=== PATIENT | female | born 1950 | race Caucasian/White ===

== ENCOUNTER → 2017-03-07 | Outpatient (CLI) | payer BC ==
[~2017-03-07] MED LIST: ATEN-171 PO
--- NOTE | 2017-03-07 12:44 | MAMMOGRAPHY REPORT ---
BILATERAL DIGITAL SCREENING MAMMOGRAM WITH CAD: 03/07/2017 CLINICAL HISTORY: Routine screening. TECHNIQUE: Current study was also evaluated with a Computer Aided Detection (CAD) system. Bilateral CC and MLO views were obtained. COMPARISON: Comparison is made to exams dated: 03/05/2016 mammogram, 03/03/2015 mammogram, 12/09/2013 m ammogram, 12/08/2012 mammogram, 07/30/2011 mammogram - [facility], and 05/22/2010 mamm ogram - [facility]. BREAST COMPOSITION: There are scattered areas of fibroglandular density in both breasts. FINDINGS: No suspicious masses, calcifications, or areas of architectural distortion are noted in ei ther breast. There has been no significant interval change compared to prior exams. IMPRESSION: ACR BI-RADS CATEGORY 1: NEGATIVE There is no mammographic evidence of malignancy. A 1 year screening mammogram is recommended. The pa tient will receive written notification of the results. Approximately 10% of breast cancers are not detected with mammography. A negative mammographic report should not delay biopsy if a clinically suggestive mass is present. Jocelynn Guadarrama M.D. /:03/07/2017 12:19:25 Implementation Manager: Gt GOOD(Alise)(M), [facility] letter sent: Normal 1/2 BI-RADS Code: ACR BI-RADS Category 1: Negative
== END | disposition home or self-care (01) ==
LOC: C.MAMM 10:57
PROVIDERS: ATTEND Family Medicine
DX: Z12.31 Encounter for screening mammogram for malignant neoplasm of breast (principal)

== ENCOUNTER 2019-01-15 10:46 | Inpatient (IN) ==
[2019-01-15] MEDS ORDERED: ONDANSETRON INJ 2 MG/ML 2 ML VIAL IV STA (10:58)
[2019-01-15] MEDS ORDERED: SODIUM CHLORIDE 0.9% 1000ML 1,000 ML IV ONE (10:58)
[2019-01-15] MEDS ORDERED: METOCLOPRAMIDE HCL INJ 5 MG/ML 2 ML VIAL IV STA (11:07)
[2019-01-15] MEDS ORDERED: ACETAMINOPHEN 1,000 MG/100 ML VIAL IV STA (11:07)
[2019-01-15 11:20] LABS: Basophils # (auto) 0.02 K/uL (0-0.2); Basophils % (auto) 0.3 %; Eosinophils # (auto) 0.04 K/uL (0-0.5); Eosinophils % (auto) 0.5 %; Hematocrit (blood only) 36.9 % (37-47); Hemoglobin 12.7 g/dL (12.0-16.0); Immature Granulocytes # (auto) 0.01 K/uL (0.00-0.02); Immature Granulocytes % (auto) 0.1 %; Lymphocytes # (auto) 1.72 K/uL (1.2-3.4); Lymphocytes % (auto) 21.7 %; Mean Corpuscular Hgb Conc 34.4 g/dL (32-36); Mean Corpuscular Volume 88.3 fL (80-100); Mean Platelet Volume 9.8 fL (7.4-10.4); Monocytes % (auto) 8.8 %; Neutrophils # (auto) 5.43 K/uL (1.4-6.5); Neutrophils % (auto) 68.6 %; Platelet Count 293 K/uL (130-400); RDW Coefficient of Variation 12.8 % (11.5-14.5); RDW Standard Deviation 41.1 fL (36.4-46.3); Red Blood Count 4.18 M/uL (4.2-5.4); White Blood Count 7.92 K/uL (4.8-10.8)
--- NOTE | 2019-01-15 11:31 | CT Scan Report ---
CT head/brain wo con CT DOSE: 537.48 mGy.cm HISTORY: Headache mental status change TECHNIQUE: Multiaxial CT images of the head were performed without the use of intravenous contrast. A dose lowering technique was utilized adhering to the principles of ALARA. Comparison: 12/25/2009 Findings: The paranasal sinuses and mastoid air cells are clear. The calvarium and skull base are int act. The ventricles and sulci are within normal limits. There is no mass, hematoma, midline shift, or acute infarct. Impression: No acute intracranial abnormality. The above report was generated using voice recognition software. It may contain grammatical, syntax or spelling errors. Electronically signed by: Mario Trimble M.D. 01/15/2019 11:30 AM
[2019-01-15 11:36] LABS: Alanine Aminotransferase 27 U/L (12-78); Albumin Level 3.8 gm/dl (3.4-5.0); Aspartate Aminotransferase 18 U/L (15-37); BUN Creatinine Ratio 11.7 (10-20); Blood Urea Nitrogen 9 mg/dl (7-18); Calcium 9.3 mg/dl (8.5-10.1); Carbon Dioxide 30 mmol/L (21-32); Chloride 89 mmol/L (98-107); Creatinine Clr Calc Pharmacy 76.2 ml/min; Est GFR (African American) 96.7; Est GFR (Non-African American) 83.4; Glucose 124 mg/dl (70-99); Magnesium 1.7 mg/dl (1.8-2.4); Potassium 2.9 mmol/L (3.5-5.1); Sodium 126 mmol/L (136-145)
[2019-01-15 11:41] LABS: Alkaline Phosphatase 58 U/L (45-117); Bilirubin,Total 0.8 mg/dl (0.2-1); Globulin 3.7 gm/dl (2.5-4.0); Total Protein 7.5 gm/dl (6.4-8.2); Troponin I < 0.015 ng/ml (0-0.045)
--- NOTE | 2019-01-15 13:06 | XRay Report ---
XR KUB/Abdomen 1 view CLINICAL HISTORY: Nausea and vomiting COMPARISON STUDY: No previous studies for comparison. FINDINGS: There is no pathologic bowel dilatation. Multiple pelvic basin calcifications likely are pr esent phleboliths. No definite renal calculi are evident. IMPRESSION: Nonobstructive bowel gas pattern. Electronically signed by: Jamison Elkins M.D. 01/15/2019 1:05 PM
[2019-01-15] MEDS ORDERED: PROMETHAZINE 12.5 MG/50.5 ML BAG IV STA (13:16)
[2019-01-15] MEDS ORDERED: MAGNESIUM SULFATE / D5W 1 GM/100 ML BAG IV ONE (13:34)
--- NOTE | 2019-01-15 15:27 | History & Physical Report ---
Date of Service January 15, 2019 Assessment & Plan (1) Hyponatremia: Patient sodium is gone from 1 34-129-1 26, she is a persistent nausea and vomiting for last 2 days without a preceding change in her lifestyle exposures, or medications, with no other ill contacts at home. She appears to be euvolemic to clinical inspection she will be fluid restricted at this time with pending urine random sodium and serum osmolality. Her chlorthalidone will be held (2) Intractable nausea and vomiting: Patient be offered antiemetics and she is currently tolerating ree liz she has no abdominal pain repeat elect lites will be in the morning (3) Electrolyte abnormality: Patient's hypokalemia and hypomagnesemia will be repleted by intravenous means (4) High blood pressure: Patient is atenolol be continued without the chlorthalidone for blood pressure control (5) Anxiety and depression: Patient is maintained on her Prozac (6) Rosacea: Patient typically takes doxycycline 20 mg a day for her rosacea (7) Hyperlipidemia: Patient on atorvastatin for dyslipidemia (8) Intracranial hemorrhage: Patient had intracranial hemorrhage without need for intervention 2008 with complete resolution of symptoms. This is why he avoids nonsteroidals. Initial CT scan showed no concerns for intracranial abnormalities (9) Tick bite: Patient had multiple tick bites that she is avid outdoor in her yard Lyme disease was negative peripheral smear is pending (10) DVT prophylaxis: Because the patient is in a cranial hemorrhage we will just use SCDs at this point time when she is more persistently immobile History of Present Illness Primary Care Provider: Lukas Booth MD 68-year-old female who presents with intractable nausea and vomiting profound hyponatremia hypokalemia and hypomagnesemia. Patient was in the ER on 1 day prior with sodium 129 nausea and vomiting was diagnosed with UTI given Cipro and sent home. The patient was here on 730 for preanesthesia check for knee replacement had a sodium 134. Patient denies any dietary changes new medications ill contacts or exposure to public water. Patient has had previous tick bites in the distant past and a Lyme test on 01/14 was negative. In the ER she is given 2 rounds of antiemetics persistent with nausea. Patient does not have any preceding abdominal pain current abdominal pain increased stressors use of caffeine or alcohol she does not use nonsteroidals she is not had a cholecystectomy but LFTs and lipase are normal said no diarrhea with this. She is also had normal urinations recently without any dark urine or urinary changes. The urine infection was suspected due to a routine urinalysis that was done on ER presentation. Allergies Allergy/AdvReac Type Severity Reaction Status Date / Time Penicillins Allergy Mild RASH Verified 01/15/19 11:37 aspirin AdvReac Unknown CAN'T Verified 01/15/19 11:37 HAVE, HX HEMORRHAGIC STROKE NSAIDS (Non-Steroidal AdvReac Unknown CAN'T Verified 01/15/19 11:37 Anti-Inflamma HAVE, HX HEMORRHAGIC STROKE Home Medications Home Medications Medication Instructions Recorded Confirmed Type atenolol-chlorthalidone 1 tab PO HS 01/05/19 01/15/19 History atorvastatin 40 mg PO HS 01/05/19 01/15/19 History diphenhydramine HCl [Benadryl] 25 mg PO HS 01/05/19 01/15/19 History doxycycline hyclate 20 mg PO HS 01/05/19 01/15/19 History fluoxetine [Prozac] 20 mg PO Q2D 01/05/19 01/15/19 History ciprofloxacin HCl [Cipro] 500 mg PO Q12H #10 tab 01/14/19 01/15/19 Rx fluocinonide 1 applic TOPICAL DIRECTED PRN 01/14/19 01/15/19 History metronidazole 1 applic TOPICAL BID PRN 01/14/19 01/15/19 History calcium carbonate-vitamin D3 500 tab PO QAM 01/15/19 01/15/19 History [Calcium 500 + D (D3)] cinnamon bark [Cinnamon] 500 mg PO QAM 01/15/19 01/15/19 History coenzyme Q10 [CoQ-10] 30 mg PO QAM 01/15/19 01/15/19 History cranberry 400 mg PO QAM 01/15/19 01/15/19 History flaxseed oil 1,000 mg PO QAM 01/15/19 01/15/19 History lactobacillus combination no.4 0 cell PO QAM 01/15/19 01/15/19 History [Probiotic] multivitamin 100 tab PO QAM 01/15/19 01/15/19 History vitamin B complex 0 tab PO QAM 01/15/19 01/15/19 History Past Med/Surg History Medical History Anxiety and depression High blood pressure History of stroke HEMORRHAGIC , 2010 - [place] AT [place], NO RESIDUAL EFFECTS "SEALED ITSELF" Hyperlipidemia Osteoarthritis Rosacea Surgical History History of colonoscopy History of gynecologic surgery OVARIAN CYST REMOVED AND 1 ONE OVARY , patient believes appendix may have been removed at that time, 1977 History of hysterectomy 1 OVARY REMAINS History of right knee surgery ACL REMOVED Social History Preferred Language: Macedonian Communication Ability: Effective Field Property Loss Specialist Required: No Beliefs That Will Affect Care: None Current Living Situation: Spouse Feels Safe at Home: Yes Smoking Status: Never smoker Hx Alcohol Use: Yes Alcohol type: wine Hx Substance Use: No Review of Systems Review of Systems: ROS: well nourished well developed. Patient was in mild distress of any No double vision blurry vision No problems with speech or swallowing No palpitations, chest pain or pressure No Wheezing or breathing issues No abdominal pain but she is had persistent nausea she has had some vomiting in the ER, she said no diarrhea No burning urine urine frequency or changes in color No focal joint pain or muscle pain No skin rashes or oral lesions No unusual bruising or bleeding No focused back pain or numbness or loss of strength No changes in memory or confusion Physical Exam Physical Exam: The patient appeared well nourished and normally developed. Vital signs as documented. Head exam is unremarkable. normocephalic, atraumatic Neck is without jugular venous distension, thyromegaly, or lymphademopathy Lungs are clear to auscultation and percussion. Cardiac exam reveals Rhythm is regular. First and second heart sounds normal. Abdominal exam reveals normal bowel sounds, no masses, no organomegaly Extremities are nonedematous and both pedal pulses are present Neurologic exam is A&Ox3, no focal deficits, strength is equal bilateral Psychologically seems neither anxious or depressed Skin is warm Dry without bruises or lesions Results & Data Vital Signs (Past 12 Hours) Vital Signs Temp Pulse Pulse Resp BP BP Pulse Ox 01/15/19 11:54 62 18 138/69 97 01/15/19 10:54 36.6 C 65 18 125/[address] head was negative KUB was also negative for bowel obstruction EKG shows sinus bradycardia with some persistent lateral ST and T wave changes which are similar to 2011 PG Care Time/CCT Total # of Minutes Spent Total Time Spent with Patient: Total time spent is greater than 50% in coordination of care (as documented) at patient's floor/unit and/or counseling patient:
[2019-01-15] MEDS ORDERED: PROMETHAZINE HCL 12.5 MG in SODIUM CHLORIDE 0.9% 50 ML IV PRN ×2 (15:32→16:43)
[2019-01-15] MEDS ORDERED: POTASSIUM CHLORIDE 10 MEQ / 100ML WTR IV STA (16:43)
[2019-01-15] MEDS ORDERED: ONDANSETRON INJ 2 MG/ML 2 ML VIAL IV PRN (16:43)
[2019-01-15] MEDS ORDERED: LORazepam 0.5 MG/1 ML VIAL IV PRN (16:43)
[2019-01-15] MEDS ORDERED: POTASSIUM CHLORIDE / WTR 10 MEQ/100 ML PLCT IV SCH (17:00)
--- NOTE | 2019-01-15 17:44 | Emergency Department Note ---
Entered by Alex Gacres acting as a scribe for Rolando Ng MD History of Present Illness General Chief complaint: Nausea Stated complaint: NAUSEA, CAN'T KEEP LIQ DOWN,HEADACHE Time Seen by Provider: 01/15/19 10:57 Source: patient History of Present Illness Provider complaint: Nausea Onset (ago): day(s) 1 Location: abdomen Pain Consistency: + constant Maximum Pain Intensity: 6 Current Pain Intensity: 6 Relieved By: + none Exacerbated By: + eating and + other (Drinking) Associated symptoms: + headaches and + nausea/vomiting The patient is a 68 year old female w/ PMHx HTN, HLD, CVA, UTI, hyster ectomy and knee surgery who presents to the ED w/ CC of constant nausea beginning yesterday. The patient states she was here yesterday and was diagnosed with sinusitis and a possible UTI. The patient was given Rocephin and Cipro at discharge. She notes that last night she started vomiting and this has been constant since. The patient reports that eating and drinking makes her symptoms worse and nothing makes better. The patient notes that she has some abdominal pain from vomiting, which she rates a 6/10. The patient also mentioned that she has a slight headache. The patient states she took a Tylenol at 03:00 this morning which helped relieve her symptoms a little. She notes her last bowel mo vement was this morning and it was normal. The patient denies any recent travel, being around anyone sick, recent surgeries, or baseline deficits from her stroke as well as being on any blood thinners. Home Medications Home Medications Medication Instructions Recorded Confirmed Type atenolol-chlorthalidone 1 tab PO HS 01/05/19 01/15/19 History atorvastatin 40 mg PO HS 01/05/19 01/15/19 History diphenhydramine HCl [Benadryl] 25 mg PO HS 01/05/19 01/15/19 History doxycycline hyclate 20 mg PO HS 01/05/19 01/15/19 History fluoxetine [Prozac] 20 mg PO Q2D 01/05/19 01/15/19 History ciprofloxacin HCl [Cipro] 500 mg PO Q12H #10 tab 01/14/19 01/15/19 Rx fluocinonide 1 applic TOPICAL DIRECTED PRN 01/14/19 01/15/19 History metronidazole 1 applic TOPICAL BID PRN 01/14/19 01/15/19 History calcium carbonate-vitamin D3 500 tab PO QAM 01/15/19 01/15/19 History [Calcium 500 + D (D3)] cinnamon bark [Cinnamon] 500 mg PO QAM 01/15/19 01/15/19 History coenzyme Q10 [CoQ-10] 30 mg PO QAM 01/15/19 01/15/19 History cranberry 400 mg PO QAM 01/15/19 01/15/19 History flaxseed oil 1,000 mg PO QAM 01/15/19 01/15/19 History lactobacillus combination no.4 0 cell PO QAM 01/15/19 01/15/19 History [Probiotic] multivitamin 100 tab PO QAM 01/15/19 01/15/19 History vitamin B complex 0 tab PO QAM 01/15/19 01/15/19 History Allergies Allergy/AdvReac Type Severity Reaction Status Date / Time Penicillins Allergy Mild RASH Verified 01/15/19 11:37 aspirin AdvReac Unknown CAN'T Verified 01/15/19 11:37 HAVE, HX HEMORRHAGIC STROKE NSAIDS (Non-Steroidal AdvReac Unknown CAN'T Verified 01/15/19 11:37 Anti-Inflamma HAVE, HX HEMORRHAGIC STROKE Past Med/Surg History Medical History Anxiety and depression High blood pressure History of stroke HEMORRHAGIC , 2010 - [place] AT [place], NO RESIDUAL EFFECTS "SEALED ITSELF" Hyperlipidemia Osteoarthritis Rosacea Surgical History History of colonoscopy History of gynecologic surgery OVARIAN CYST REMOVED AND 1 ONE OVARY , patient believes appendix may have been removed at that time, 1977 History of hysterectomy 1 OVARY REMAINS History of right knee surgery ACL REMOVED Family History Other Family history of prostate cancer in father Social History Preferred Language: Danish Communication Ability: Effective 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 and A total of 10 systems reviewed and were otherwise negative Physical Exam Vital Signs Vital Signs - 24 hr 01/15/19 10:54 01/15/19 11:54 01/15/19 13:40 Temperature 36.6 C Temperature Source Oral Sepsis Recent Fever Within 48 Hours No Sepsis New/Unexplained Change in Mental Status No Sepsis Action Taken by Nursing No Action Required Pulse Rate 65 Pulse Rate [Left Finger] 62 56 L Pulse Rhythm [Left Finger] Regular Regular Pulse Strength [Left Finger] Normal Normal Respiratory Rate 18 18 18 Respiratory Effort / Characteristics Non-Labored Spontaneous Non-Labored Spontaneous Respiratory Depth Normal Normal Normal Respiratory Pattern Regular Regular Blood Pressure 125/76 Blood Pressure [Left Arm] 138/69 135/73 Blood Pressure Mean 92 Blood Pressure Mean [Left Arm] 92 93 Blood Pressure Position [Left Arm] Lying Lying Pulse Oximetry 97 97 96 Oxygen Delivery Method Room Air Room Air Room Air GENERAL: Mildly uncomfortable in appearance, well nourished, NAD, non-toxic. EYE EXAM: Normal conjunctiva. PERRL, no anisocoria and EOM's grossly intact w/o pain. OROPHARYNX: Dry mucus membranes. Grossly normal dentition. NECK: Supple, no nuchal rigidity, no adenopathy, non-tender. No signs of meningismus. LUNGS: Clear to auscultation. Normal chest wall mechanics. HEART: NSR, no MRG. ABDOMEN: Abdomen soft, non-tender, normo-active bowel sounds, no masses, no rebound or guarding. BACK: No CVA TTP. SKIN: No rashes and no bruising. UPPER EXTREMITIES: Upper extremities are grossly normal. LOWER EXTREMITIES: No pitting edema. No calf pain. NEURO EXAM: A&O x3, cranial nerves II-XII grossly intact, normal speech, moves all 4 extremities on command w/o issue. Course 1102: Past medical records reviewed. The patient was evaluated in room C06, and a complete history and physical examination were performed. 1238: I reevaluated the patient and her vomiting is better. She is trying to keep down ree liz. 1315: The patient is now vomiting. 1423: I spoke to Dr. Mendez [facility] Hospitalist about the patient's case and he is going to accept the patient for further evaluation. Consultations Consultation #1: I spoke to Dr. Mendez [facility] Hospitalist about the patient's case and he is going to accept the patient for further evaluation. Time: 14:23 Administered Medications Potassium Chloride (K Kevin / Wtr) 10 meq in 100 mls @ 100 mls/hr IV Q1H EWA Stop: 01/15/19 19:59 Last Admin: 01/15/19 17:29 Dose: 100 mls/hr Documented by: [id number] Discontinued Medications Sodium Chloride (Nss 1000ml) 1,000 mls @ 999 mls/hr IV .Q1H1M ONE Stop: 01/15/19 11:58 Last Infusion: 01/15/19 12:20 Dose: 0 mls/hr Documented by: [id number] Admin: 01/15/19 11:18 Dose: 999 mls/hr Documented by: [id number] Acetaminophen (Ofirmev) 1,000 mg in 100 mls @ 400 mls/hr IV NOW STA Stop: 01/15/19 11:21 Last Infusion: 01/15/19 12:06 Dose: 0 mls/hr Documented by: [id number] Admin: 01/15/19 11:51 Dose: 400 mls/hr Documented by: [id number] Promethazine HCl (Phenergan) 12.5 mg in 50.5 mls @ 202 mls/hr IV NOW STA Stop: 01/15/19 13:30 Last Infusion: 01/15/19 13:44 Dose: 0 mls/hr Documented by: [id number] Admin: 01/15/19 13:29 Dose: 202 mls/hr Documented by: [id number] Magnesium Sulfate/Dextrose (Magnesium Sulfate / D5w) 1 gm in 100 mls @ 100 mls/hr IV ONE ONE Stop: 01/15/19 14:33 Last Infusion: 01/15/19 15:00 Dose: 0 mls/hr Documented by: [id number] Admin: 01/15/19 13:54 Dose: 100 mls/hr Documented by: [id number] Metoclopramide HCl (Reglan) 10 mg IV NOW STA Stop: 01/15/19 11:08 Last Admin: 01/15/19 11:18 Dose: 10 mg Documented by: [id number] Ondansetron HCl (Zofran) 4 mg IV NOW STA Stop: 01/15/19 10:59 Last Admin: 01/15/19 11:22 Dose: Not Given Documented by: [id number] Medical Decision Making Medical Records Attestation: I reviewed the patient's medical records. Home Medications Current Medication List: was personally reviewed by me Laboratory Data Attestation: I reviewed the patient's lab results. Result diagrams: 01/15/19 11:11 01/15/19 11:11 Lab Results 01/15/19 01/15/19 01/15/19 Range/Units 11:11 11:11 11:11 WBC 7.92 (4.8-10.8) K/uL RBC 4.18 L (4.2-5.4) M/uL Hgb 12.7 (12.0-16.0) g/dL Hct 36.9 L (37-47) % MCV 88.3 (80-100) fL MCH 30.4 (25-34) pg MCHC 34.4 (32-36) g/dL RDW Std Deviation 41.1 (36.4-46.3) fL RDW Coeff of Janna 12.8 (11.5-14.5) % Plt Count 293 (130-400) K/uL MPV 9.8 (7.4-10.4) fL Immature Gran % (Auto) 0.1 % Neut % (Auto) 68.6 % Lymph % (Auto) 21.7 % Falls % (Auto) 8.8 % Eos % (Auto) 0.5 % Baso % (Auto) 0.3 % Immature Gran # (Auto) 0.01 (0.00-0.02) K/uL Neut # (Auto) 5.43 (1.4-6.5) K/uL Lymph # (Auto) 1.72 (1.2-3.4) K/uL Falls # (Auto) 0.70 H (0.11-0.59) K/uL Eos # (Auto) 0.04 (0-0.5) K/uL Baso # (Auto) 0.02 (0-0.2) K/uL Absolute Nucleated RBC 0.00 (0-0) K/uL Nucleated RBC % (auto) 0.0 % PT Cancelled INR Cancelled Sodium 126 L (136-145) mmol/L Potassium 2.9 L (3.5-5.1) mmol/L Chloride 89 L (98-107) mmol/L Carbon Dioxide 30 (21-32) mmol/L Anion Gap 7.0 (3-11) BUN 9 (7-18) mg/dl Creatinine 0.73 (0.6-1.2) mg/dl Est Cr Clr Drug Dosing 76.2 ml/min Est GFR ( Amer) 96.7 Est GFR (Non-Af Amer) 83.4 BUN/Creatinine Ratio 11.7 (10-20) Glucose 124 H (70-99) mg/dl Osmolality (280-300) mOsm/kg Calcium 9.3 (8.5-10.1) mg/dl Magnesium 1.7 L (1.8-2.4) mg/dl Total Bilirubin 0.8 (0.2-1) mg/dl AST 18 (15-37) U/L ALT 27 (12-78) U/L Alkaline Phosphatase 58 (45-117) U/L Troponin I < 0.015 (0-0.045) ng/ml Total Protein 7.5 (6.4-8.2) gm/dl Albumin 3.8 (3.4-5.0) gm/dl Globulin 3.7 (2.5-4.0) gm/dl Albumin/Globulin Ratio 1.0 (0.9-2) Lipase 125 (73-393) U/L 01/15/19 Range/Units 11:11 WBC (4.8-10.8) K/uL RBC (4.2-5.4) M/uL Hgb (12.0-16.0) g/dL Hct (37-47) % MCV (80-100) fL MCH (25-34) pg MCHC (32-36) g/dL RDW Std Deviation (36.4-46.3) fL RDW Coeff of Janna (11.5-14.5) % Plt Count (130-400) K/uL MPV (7.4-10.4) fL Immature Gran % (Auto) % Neut % (Auto) % Lymph % (Auto) % Falls % (Auto) % Eos % (Auto) % Baso % (Auto) % Immature Gran # (Auto) (0.00-0.02) K/uL Neut # (Auto) (1.4-6.5) K/uL Lymph # (Auto) (1.2-3.4) K/uL Falls # (Auto) (0.11-0.59) K/uL Eos # (Auto) (0-0.5) K/uL Baso # (Auto) (0-0.2) K/uL Absolute Nucleated RBC (0-0) K/uL Nucleated RBC % (auto) % PT INR Sodium (136-145) mmol/L Potassium (3.5-5.1) mmol/L Chloride (98-107) mmol/L Carbon Dioxide (21-32) mmol/L Anion Gap (3-11) BUN (7-18) mg/dl Creatinine (0.6-1.2) mg/dl Est Cr Clr Drug Dosing ml/min Est GFR ( Amer) Est GFR (Non-Af Amer) BUN/Creatinine Ratio (10-20) Glucose (70-99) mg/dl Osmolality 267 L (280-300) mOsm/kg Calcium (8.5-10.1) mg/dl Magnesium (1.8-2.4) mg/dl Total Bilirubin (0.2-1) mg/dl AST (15-37) U/L ALT (12-78) U/L Alkaline Phosphatase (45-117) U/L Troponin I (0-0.045) ng/ml Total Protein (6.4-8.2) gm/dl Albumin (3.4-5.0) gm/dl Globulin (2.5-4.0) gm/dl Albumin/Globulin Ratio (0.9-2) Lipase (73-393) U/L Imaging Data Radiologist's Impression: Radiology results as stated below per my review and the radiologist's interpretation: XR KUB/Abdomen 1 view CLINICAL HISTORY: Nausea and vomiting COMPARISON STUDY: No previous studies for comparison. FINDINGS: There is no pathologic bowel dilatation. Multiple pelvic basin c alcifications likely are present phleboliths. No definite renal calculi are evident. IMPRESSION: Nonobstructive bowel gas pattern. Electronically signed by: Jamison Elkins M.D. 01/15/2019 1:[address] head/brain wo con CT DOSE: 537.48 mGy.cm HISTORY: Headache mental status change TECHNIQUE: Multiaxial CT images of the head were performed without the use of intravenous contrast. A dose lowering technique was utilized adhering to the principles of ALARA. Comparison: 12/25/2009 Findings: The paranasal sinuses and mastoid air cells are clear. The calvarium and skull base are intact. The ventricles and sulci are within normal limits. There is no mass, hematoma, midline shift, or acute infarct. Impression: No acute intracranial abnormality. The above report was generated using voice recognition software. It may contain grammatical, syntax or spelling errors. Electronically signed by: Mario Trimble M.D. 01/15/2019 11:30 AM ECG Data Attestation: I personally reviewed and interpreted this ECG as follows: Indication: vomiting Rate (beats per minute): 60 Rhythm: normal sinus Findings: + other (Normal intervals and axis) and + T-wave inversion (V2 and V3) Comparison ECG Date: from (01/12/19) Change: the following changes noted (TWI is new. ) Blood Pressure Blood Pressure Findings: Normal blood pressure Blood Pressure Disposition: further management by hospitalist MDM Narrative The patient is a 68 year old female w/ PMHx HTN, HLD, CVA, UTI, hysterectomy and knee surgery who presents to the ED w/ CC of constant nausea beginning yesterday. Differential diagnoses includes but is not limited to gastritis, peptic ulcer disease, GERD, gallbladder disease, pancreatitis, small bowel obstruction, acute coronary syndrome, pericarditis, ischemic bowel, irritable bowel disease, irritable bowel syndrome, appendicitis, diverticulitis, malignancy, hernia, urinary tract infection, torsion, perforation, trauma, infectious. Patient was seen and evaluated the bedside. The patient was presenting with some worsening nausea and associated vomiting. The patient states she has not been able to tolerate by mouth. The patient was seen yesterday did have some mild hyponatremia and was diagnosed with a possible UTI started on ciprofloxacin. The patient's blood work does show worsening hyponatremia and associated hypomagnesemia. The patient did receive IV fluids. The patient was given 2 rounds of antiemetics but was still feeling nauseated and had vomited. Given the persistence and associated hyponatremia did speak the on-call hospitalist. A urine sodium and serum awesome's were added. Patient was admitted to the medicine service. Patient did have a soft abdomen and really only complained of nausea. No CT of the and pelvis was ordered at this time given her reassuring blood work. EKG did possibly show some new T wave inversions but the troponin was negative. Patient did have a CT of the brain which is negative given her prior history of intracranial hemorrhage. Patient does self describe having an angiogram completed which is not show any evident evidence of aneurysm and apparently did not require any sort of coiling or embolization procedure within the brain, per the patient. Impression & Plan Hyponatremia, Nausea & vomiting, Hypomagnesemia Discharge Plan Visit Data *Final* Discharge Date/Time: 01/15/19 16:16 Chief Complaint: Nausea Stated Complaint: NAUSEA, CAN'T KEEP LIQ DOWN,HEADACHE ED Provider: Rolando Ng Discharge Problem: Hyponatremia, Nausea & vomiting, Hypomagnesemia Patient Disposition: Admitted As Inpatient Discharge Instructions Interventions: ED Discharge Assessment Last Done: 01/15/19 16:16 Discharge Problem: Nausea & vomiting Qualifiers: Vomiting type: unspecified Vomiting Intractability: unspecified Qualified Code(s): R11.2 - Nausea with vomiting, unspecified The scribe's documentation has been prepared under my direction and personally reviewed by me in its entirety. I confirm that the note above accurately reflects all work, treatment, procedures, and medical decision making performed by me.
[2019-01-15] MEDS ORDERED: POTASSIUM CHLORIDE 20 MEQ TABCR PO STA (17:47)
[2019-01-15] MEDS ORDERED: Nursing to Pharmacy Communication ONE (17:50)
[2019-01-15 19:01] LABS: INR 1.2 (0.9-1.1); Prothrombin Time 12.2 Seconds (9.0-12.0)
[2019-01-15] MEDS: ATORVASTATIN 40 MG TAB PO SCH (21:13)
[2019-01-16] MEDS: ACETAMINOPHEN 325 MG TAB PO PRN ×2 (03:33→18:29)
[2019-01-16 07:14] LABS: BUN Creatinine Ratio 9.8 (10-20); Calcium 8.9 mg/dl (8.5-10.1); Creatinine Clr Calc Pharmacy 88.8 ml/min; Est GFR (African American) 105.9; Est GFR (Non-African American) 91.4; Potassium 2.9 mmol/L (3.5-5.1)
[2019-01-16] MEDS ORDERED: FLUOXETINE HCL 20 MG CAP PO SCH (09:00)
[2019-01-16] MEDS: POTASSIUM CHLORIDE 20 MEQ TABCR PO SCH ×3 (09:20→20:58)
[2019-01-16] MEDS: POTASSIUM CHLORIDE / WTR 10 MEQ/100 ML PLCT IV SCH ×2 (09:23→12:30)
[2019-01-16] MEDS: ATENOLOL 50 MG TABLET PO SCH (09:37)
[2019-01-16 17:01] LABS: BUN Creatinine Ratio 10.4 (10-20); Calcium 9.3 mg/dl (8.5-10.1); Creatinine Clr Calc Pharmacy 84.7 ml/min; Est GFR (African American) 104.3; Potassium 3.7 mmol/L (3.5-5.1)
--- NOTE | 2019-01-16 17:27 | Hospitalist Progress Note ---
Date of Service January 16, 2019 Assessment & Plan (1) Nausea & vomiting: resolved. suspect she had viral gastroenteritis. doubt this was due to tick-borne disease as she is improving without tick- directed antibiotics. advance diet to full liquids. replace low K and low mag. no pain on exam to suggest biliary tract disease. Present on Admission?: Yes (2) Hyponatremia: Improving. Was likely due to vomiting as well as thiazide diuretic use. Repeat BMP am. Present on Admission?: Yes (3) Hypomagnesemia: resolved Present on Admission?: Yes (4) Hypokalemia: resolving replace IV/PO today repeat BMP again in am would not resume thiazide diuretic at discharge Present on Admission?: Yes (5) Tick bite: in the recent past. lyme's negative. send anaplasmosis DNA. doubt GI symptoms are tick-borne related. Present on Admission?: No (6) HTN (hypertension): cont atenolol hold thiazide Present on Admission?: Yes (7) Hyperlipidemia: cont statin (8) DVT prophylaxis: ambulation SCDs hopefully can d/c home tomorrow Subjective patient feeling better. no nausea/emesis/diarrhea. no abdominal pain. tolerating clears. has appetite. had chills a few days ago - now resolved. no fever. worried about recent tick bites. Review of Systems Constitutional: no fever, no chills, no body aches and no fatigue Respiratory: no cough and no dyspnea Cardiovascular: no chest pain Gastrointestinal: no abdominal pain, no bloating, no nausea, no vomiting, no constipation, no diarrhea/loose stools and no blood in stools Physical Exam Constitutional: well developed and well nourished; no acute distress ENMT: external ear and nose normal, oropharynx normal Respiratory: normal respiratory effort, lungs clear to auscultation Cardiovascular: Rate/Rhythm: regular rate and regular rhythm Heart Sounds: normal S1 and normal S2; no murmur Vessels: posterior tibial pulses present and dorsalis pedis pulses present; no JVD Extremities: no edema Gastrointestinal (Abdomen): normal bowel sounds, soft, nontender, no hepatosplenomegaly Psychiatric: A+Ox3, euthymic affect Results & Data Vital Signs (Past 12 Hours) Vital Signs Temp Pulse Pulse Resp BP Pulse Ox 01/16/19 15:51 36.6 C 78 20 143/81 H 97 01/16/19 11:09 36.6 C 62 18 151/86 H 97 01/16/19 11:05 61 01/16/19 07:15 36.8 C 59 L 18 123/68 96 Laboratory Results Laboratory Results - last 24 hr 01/15/19 01/15/19 01/15/19 11:11 11:11 18:43 Absolute Nucleated RBC 0.00 Nucleated RBC % (auto) 0.0 PT 12.2 H INR 1.2 H Sodium Potassium Chloride Carbon Dioxide Anion Gap BUN Creatinine Est Cr Clr Drug Dosing Est GFR ( Amer) Est GFR (Non-Af Amer) BUN/Creatinine Ratio Glucose Calcium Magnesium TSH 2.270 Urine Osmolality Ur Random Sodium A. phagocytophilum DNA Hepatitis C Ab Screen 01/16/19 01/16/19 01/16/19 03:30 06:29 06:29 Absolute Nucleated RBC Nucleated RBC % (auto) PT INR Sodium 131 L Potassium 2.9 L Chloride 94 L Carbon Dioxide 30 Anion Gap 7.0 BUN 6 L Creatinine 0.62 Est Cr Clr Drug Dosing 88.8 Est GFR ( Amer) 105.9 Est GFR (Non-Af Amer) 91.4 BUN/Creatinine Ratio 9.8 L Glucose 95 Calcium 8.9 Magnesium TSH Urine Osmolality Ur Random Sodium 80 A. phagocytophilum DNA Hepatitis C Ab Screen Neg 01/16/19 01/16/19 01/16/19 06:29 11:25 11:25 Absolute Nucleated RBC Nucleated RBC % (auto) PT INR Sodium Potassium Chloride Carbon Dioxide Anion Gap BUN Creatinine Est Cr Clr Drug Dosing Est GFR ( Amer) Est GFR (Non-Af Amer) BUN/Creatinine Ratio Glucose Calcium Magnesium 2.1 TSH Urine Osmolality 381 L Ur Random Sodium 86 A. phagocytophilum DNA Hepatitis C Ab Screen 01/16/19 01/16/19 16:20 16:20 Absolute Nucleated RBC Nucleated RBC % (auto) PT INR Sodium 133 L Potassium 3.7 D Chloride 97 L Carbon Dioxide 29 Anion Gap 7.0 BUN 7 Creatinine 0.65 Est Cr Clr Drug Dosing 84.7 Est GFR ( Amer) 104.3 Est GFR (Non-Af Amer) 90.0 BUN/Creatinine Ratio 10.4 Glucose 88 Calcium 9.3 Magnesium TSH Urine Osmolality Ur Random Sodium A. phagocytophilum DNA Pending Hepatitis C Ab Screen PG Care Time/CCT Total # of Minutes Spent Total Time Spent with Patient: Total time spent is greater than 50% in coordination of care (as documented) at patient's floor/unit and/or counseling patient: (1) Nausea & vomiting Vomiting Intractability: unspecified Vomiting type: unspecified Qualified Code(s): R11.2 - Nausea with vomiting, unspecified (2) Tick bite Encounter type: subsequent encounter Qualified Code(s): W57.XXXD - Bitten or stung by nonvenomous insect and other nonvenomous arthropods, subsequent encounter (3) HTN (hypertension) Hypertension type: essential hypertension Qualified Code(s): I10 - Essential (primary) hypertension (4) Hyperlipidemia Hyperlipidemia type: mixed hyperlipidemia Qualified Code(s): E78.2 - Mixed hyperlipidemia
[2019-01-16] MEDS: ATORVASTATIN 40 MG TAB PO SCH (20:59)
[2019-01-17 07:25] LABS: Hematocrit (blood only) 39.8 % (37-47); Hemoglobin 13.6 g/dL (12.0-16.0); Mean Corpuscular Hgb Conc 34.2 g/dL (32-36); Mean Corpuscular Volume 89.2 fL (80-100); Mean Platelet Volume 9.9 fL (7.4-10.4); Platelet Count 306 K/uL (130-400); RDW Coefficient of Variation 12.9 % (11.5-14.5); RDW Standard Deviation 41.9 fL (36.4-46.3); Red Blood Count 4.46 M/uL (4.2-5.4); White Blood Count 9.53 K/uL (4.8-10.8)
[2019-01-17 08:02] LABS: BUN Creatinine Ratio 13.5 (10-20); Calcium 9.3 mg/dl (8.5-10.1); Creatinine Clr Calc Pharmacy 91.6 ml/min; Est GFR (Non-African American) 92.4; Potassium 4.2 mmol/L (3.5-5.1)
[2019-01-17] MEDS: ATENOLOL 50 MG TABLET PO SCH (08:11)
[2019-01-17] MEDS ORDERED: SODIUM CHLORIDE 1 GM TABLET PO SCH (09:00)
[2019-01-17 12:26] LABS: Uric Acid 2.4 mg/dl (2.6-7.2)
--- NOTE | 2019-01-21 06:26 | Discharge Summary ---
Date of Service date of admission - January 15, 2019 date of discharge - January 17, 2019 Admission HPI Per Admitting Provider 68-year-old female who presented with intractable nausea and vomiting along with hyponatremia, hypokalemia, and hypomagnesemia. Patient was in the ER 1 day prior with sodium 129 along with nausea and vomiting. She was diagnosed with UTI, given Cipro, and sent home. Patient denied any dietary changes, new medications, ill contacts, or exposure to public water. Patient reported previous tick bites in the distant past and a Lyme test on 01/14 was negative. In the ER she was given 2 rounds of antiemetics but persisted with nausea. Patient denied abdominal pain. Principal Diagnosis probable viral gastroenteritis Discharge Exam Constitutional well developed and well nourished; no acute distress ENMT external ear and nose normal, oropharynx normal Respiratory normal respiratory effort, lungs clear to auscultation Cardiovascular Rate/Rhythm: regular rate and regular rhythm Heart Sounds: normal S1 and normal S2; no murmur Vessels: posterior tibial pulses present and dorsalis pedis pulses present; no JVD Extremities: no edema Gastrointestinal (Abdomen) normal bowel sounds, soft, nontender, no hepatosplenomegaly Psychiatric A+Ox3, euthymic affect Discharge Data Allergies Allergy/AdvReac Type Severity Reaction Status Date / Time Penicillins Allergy Mild RASH Verified 01/15/19 11:37 aspirin AdvReac Unknown CAN'T Verified 01/15/19 11:37 HAVE, HX HEMORRHAGIC STROKE NSAIDS (Non-Steroidal AdvReac Unknown CAN'T Verified 01/15/19 11:37 Anti-Inflamma HAVE, HX HEMORRHAGIC STROKE Ordered Studies CT head - negative for acute pathology. Hospital Course (1) Nausea & vomiting: Resolved. Suspect she had viral gastroenteritis. Doubt this was due to tick-borne disease as she was improving without tick illness directed antibiotics. Low K and Low mag were repleted. C diff testing was negative. Diet was resumed and advanced to low fiber without difficulty. She had no pain on exam to suggest biliary tract disease. (2) Hyponatremia: Acute/chronic. Records were reviewed from [facility] - she has had Na levels of 134-135 for several years. Suspect her acute hyponatremia was due to vomiting as well as thiazide diuretic use. Lowest Na level was 126; discharge Na was 130. 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 At discharge the following were recommended - 1. salt tablet NaCL 1gm daily 2. fluid restrict to 1800cc/day 3. stop chlorthalidone 4. continue SSRI for now but she is going to discuss with PCP weaning off such in the future 5. repeat BMP in 3-4 days post-discharge for stability (3) Hypomagnesemia: resolved with IV repletion (4) Hypokalemia: resolved with IV/PO repletion would not resume thiazide diuretic at discharge (5) Tick bite: in the recent past. lyme's was negative. sent anaplasmosis DNA which ultimately returned negative. doubt GI symptoms were tick disease related. (6) HTN (hypertension): continue atenolol thiazide has been stopped BPs were well-controlled while here (7) Hyperlipidemia: cont statin Total Time Total Time Spent Total Time Spent (In Minutes): 35 Total Time Includes: Examination of the Patient, Discharge Planning and Medication Reconciliation Discharge Plan Discharge Items Patient Disposition: Home - Self-Care Reason For Visit: HYPONATREMIA (low sodium) Discharge Diagnosis: 1. gastroenteritis ("stomach bug") - resolving; likely due to virus. 2. hyponatremia - likely due to combination of diuretic/water pill use, vomiting, and suspected "SIADH" from your prozac. 3. low potassium and low magnesium - resolved. 4. history of tick bite(s) - Lyme's testing negative; anaplasmosis testing pending. Discharge Goals: Diagnostic testing and Therapeutic intervention Activity: As commented below Activity Comment: for the next 1-2 days please take it easy then gradually increase activity Exercise/Sports: Gradually increase as tolerated Driving/Machine Use: Resume 1 day after discharge Non-emergency contact: Primary Care Provider Call non-emergency contact if: you have any medication questions, your symptoms worsen and your temperature is above 100.5 Follow-up/Referrals: Lukas Booth MD [Primary Care Provider] - (see Dr Booth later this week; you will need a repeat "BMP" (basic metabolic panel which checks your sodium level)) Diet: Low Fiber Fluids: 1800ml (7 cups) Addtl Provider Instructions: You were admitted with nausea and vomiting likely due to viral gastroenteritis. Your symptoms gradually improved and you were able to eat/drink. The diarrhea should gradually resolve itself in the next 2-3 days. In the midst of the stomach illness you had low potassium, low magnesium, and low sodium. Each of these improved and/or completely normalized. The low potassium and magnesium was due to vomiting as well as your diuretic you had been taking. The low sodium was likely due to multiple causes as noted above. It appears that you may have had something called "SIADH" from your prozac for some time. This is when the prozac inappropriately tells a hormone in your body to work "over-time" thereby leading to the low sodium. The treatment of this condition is to either stop the prozac; OR - you can continue on the prozac but you need to take a salt tablet daily. Your sodium level at admission was 126. It is now 130. Records from [facility] show it has chronically been mildly low at 134-135 for several years. Recommendations - 1. STOP your atenolol-chlorthalidone. 2. START atenolol 50mg once daily. 3. START sodium chloride salt tablet 1gm daily. 4. limit your total fluid intake to about 1500-1800ml each day. 5. take a probiotic for your diarrhea. 6. follow a low fiber diet until your diarrhea has resolved. 7. ok to use [id number] imodium if you wish but it is often best to just let the illness "run its course." Follow-up -- see Dr Booth THIS WEEK. You will need repeat blood work at that time. Return to [facility] if -- * you have fevers over 100.5 degrees * you have recurrent nausea, vomiting * your diarrhea gets worse instead of improving * you have abdominal pain * any other concerns Prescriptions: New sodium chloride 1 gram Tablet 1 g PO QAM Qty: 30 RF: 1 atenolol 50 mg Tablet 50 mg PO QAM Qty: 30 RF: 5 Continued diphenhydramine HCl [Benadryl] 25 mg Capsule 25 mg PO HS RF: 0 atorvastatin 40 mg Tablet 40 mg PO HS RF: 0 doxycycline hyclate 20 mg Tablet 20 mg PO HS RF: 0 fluoxetine [Prozac] 20 mg Capsule 20 mg PO Q2D RF: 0 metronidazole 0.75 % Cream 1 applic TOPICAL BID PRN (Reason: RASH) RF: 0 fluocinonide 0.05 % Cream 1 applic TOPICAL DIRECTED PRN (Reason: RASH) RF: 0 multivitamin Tablet 100 tab PO QAM RF: 0 flaxseed oil 1,000 mg Capsule 1,000 mg PO QAM RF: 0 cranberry 400 mg Capsule 400 mg PO QAM RF: 0 vitamin B complex Tablet PO QAM RF: 0 coenzyme Q10 [CoQ-10] 30 mg Capsule 30 mg PO QAM RF: 0 cinnamon bark [Cinnamon] 500 mg Capsule 500 mg PO QAM RF: 0 calcium carbonate-vitamin D3 [Calcium 500 + D (D3)] 500 mg(1,250mg) -125 unit Tablet 500 tab PO QAM RF: 0 Probiotic 3 billion cell Capsule PO QAM RF: 0 Discontinued atenolol-chlorthalidone 50-25 mg Tablet 1 tab PO HS RF: 0 ciprofloxacin HCl [Cipro] 500 mg tablet 500 mg PO Q12H Qty: 10 RF: 0 Stand-Alone Forms: [facility]/Other Patient Handouts: Sodium Chloride Oral solution, Atenolol Oral tablet, Hyponatremia Dc Discharge Orders: Discharge Order (Routine); Ordered 01/17/19 Ordered By: Adrian Barbosa Admission Data Admit Date/Time: 01/15/19 14:54 Attending Provider: Adrian Barbosa Admit Provider: Keshawn Mendez Primary Care Provider: Lukas Booth Other Providers: Keshawn Mendez Service: Telemetry Other Interventions: Discharge Summary Assessment (RN) Last Done: 01/17/19 13:31 Pending Studies at Discharge: Yes Studies:: stool culture DC Date/Time DO NOT enter until pt leaves facility: 01/17/19 14:02
== END 2019-01-17 14:02 | disposition home or self-care (01) | DRG 392 ==
LOC: ED 10:46 → 2E 14:54 → SUATTDRO 14:54 → 2E 16:16

== ENCOUNTER 2019-07-20 04:56 | Inpatient (IN) ==
--- NOTE | 2019-06-25 15:54 | PAT Medication Instructions ---
Medication Instructions Date of Service June 25, 2019 Home Medications atorvastatin 40 mg PO QPM 01/05/19 [History Confirmed 06/21/19] diphenhydramine HCl [Benadryl] 25 mg PO HS PRN 01/05/19 [History Confirmed 06/21/19] doxycycline hyclate 40 mg PO QPM 01/05/19 [History Confirmed 06/21/19] fluocinonide 1 applic TOPICAL DIRECTED PRN 01/14/19 [History Confirmed 06/21/19] metronidazole 1 applic TOPICAL QAM 01/14/19 [History Confirmed 06/21/19] acetaminophen [Tylenol] 325 mg PO Q6H PRN 01/28/19 [History Confirmed 06/21/19] atenolol-chlorthalidone 1 tab PO QPM 06/21/19 [History Confirmed 06/21/19] cholecalciferol (vitamin D3) [Vitamin D3] 50 mcg PO QAM 06/21/19 [History Confir med 06/21/19] STOP taking 24 hours before surgery fluocinonide 1 applic TOPICAL DIRECTED PRN 01/14/19 [History Confirmed 06/21/19] metronidazole 1 applic TOPICAL QAM 01/14/19 [History Confirmed 06/21/19] DO NOT take the morning of surgery cholecalciferol (vitamin D3) [Vitamin D3] 50 mcg PO QAM 06/21/19 [History Confirmed 06/21/19] Take morning of surgery With a small sip of water, OTHERWISE NOTHING TO EAT OR DRINK AFTER MIDNIGHT: acetaminophen [Tylenol] 325 mg PO Q6H PRN (okay to take up to 4 hours prior to surgery if needed) Take evening before surgery atorvastatin 40 mg PO QPM 01/05/19 [History Confirmed 06/21/19] diphenhydramine HCl [Benadryl] 25 mg PO HS PRN (if needed) doxycycline hyclate 40 mg PO QPM 01/05/19 [History Confirmed 06/21/19] acetaminophen [Tylenol] 325 mg PO Q6H PRN (if needed) atenolol-chlorthalidone 1 tab PO QPM 06/21/19 [History Confirmed 06/21/19] Other Notes If you have any questions please call us at [phone] or [phone] or [phone] or [phone]
--- NOTE | 2019-06-28 15:15 | Anesthesiology Consultation ---
Date of Service June 28, 2019 Assessment & Plan (1) Encounter for pre-operative examination: Chart Review Chart Review: Acceptable Risk for Surgery (pending pre op labs) and Patient seen in Pre Admission Testing Teaching & Discussion Instructed NPO after midnight before surgery, except medications with 15 cc of water. Medication instructions provided according to the PAT guidelines. History Surgery Operation Date: 07/20/19 07:00 Proposed Procedures p Right Total Knee Arthroplasty - Elan Levi Alston MD Height/Weight Height: 5 ft 4 in Weight: 86.5 kg Allergies Allergy/AdvReac Type Severity Reaction Status Date / Time Penicillins Allergy Mild RASH Verified 06/21/19 10:31 aspirin AdvReac Unknown ADVISED TO Verified 06/25/19 15:53 AVOID (HX HEMORRHAGIC STROKE) NSAIDS (Non-Steroidal AdvReac Unknown ADVISED TO Verified 06/25/19 15:53 Anti-Inflamma AVOID (HX HEMORRHAGIC STROKE) Medications Home Medications Medication Instructions Recorded Confirmed Last Taken atorvastatin 40 mg PO QPM 01/05/19 06/21/19 01/30/19 diphenhydramine HCl [Benadryl] 25 mg PO HS PRN 01/05/19 06/21/19 01/28/19 doxycycline hyclate 40 mg PO QPM 01/05/19 06/21/19 01/30/19 fluocinonide 1 applic TOPICAL DIRECTED PRN 01/14/19 06/21/19 Unknown metronidazole 1 applic TOPICAL QAM 01/14/19 06/21/19 01/30/19 acetaminophen [Tylenol] 325 mg PO Q6H PRN 01/28/19 06/21/19 01/30/19 atenolol-chlorthalidone 1 tab PO QPM 06/21/19 06/21/19 Unknown cholecalciferol (vitamin D3) 50 mcg PO QAM 06/21/19 06/21/19 Unknown [Vitamin D3] Past Medical History Medical History Anxiety and depression High blood pressure History of stroke hemorrhagic (2009)- treated at [facility]; no residual deficits Hx of Lyme disease Hyperlipidemia Osteoarthritis Rosacea Exercise / Class Metabolic Activity II 4-5 Yardwork/Stairs/Walk up hill Past Family History Family History Other Family history of prostate cancer in father Past Surgical History Surgical History History of colonoscopy History of gynecologic surgery OVARIAN CYSTECTOMY + USO + APPE History of hysterectomy History of right knee surgery ACL SURGERY Past Anesthesia History No Hx of Anesthesia Complications and No Family Hx of Anesthesia Complications History of PONV No Hx of Motion Sickness and History of PONV (single episode 1976) Social History Smoking Status: Never smoker Do You Dip or Chew Tobacco: No Hx Alcohol Use: Yes Alcohol type: wine alcohol intake frequency: 0-2 drinks per day Hx Substance Use: No substance use type: does not use Review of Systems Pt denies any recent chest pain, shortness of breath, palpitations, cough, fever or URI. +"Getting over a head cold" Physical Exam Vital Signs BP: 130/69 P: 55bpm SPO2: 98% RA T: 97.6 F R: 16 ENMT Mouth: + dental restorations (few crowns); no chipped teeth and no loose teeth Thyromental Distance: > or= 3.5 Finger Breadths (3.5) Mallampati Class: II Neck normal visual inspection; neck extension not limited Respiratory normal respiratory effort Auscultation: lungs clear to auscultation bilaterally Cardiovascular Rate/Rhythm: regular rhythm and + bradycardic Heart Sounds: no murmur Vessels: no carotid bruit Extremities: no edema Testing Electrocardiogram Date: 01/30/19 Findings: + SB @ (58) Nonspecific ST and T wave abnormality. Chest X-Ray Date: 01/28/19 Findings: + NAD
[2019-06-28 15:55] LABS: Basophils # (auto) 0.03 K/uL (0-0.2); Basophils % (auto) 0.5 %; Eosinophils # (auto) 0.17 K/uL (0-0.5); Eosinophils % (auto) 2.9 %; Hemoglobin 13.3 g/dL (12.0-16.0); Lymphocytes % (auto) 42.1 %; Mean Corpuscular Hemoglobin 30.6 pg (25-34); Mean Corpuscular Hgb Conc 33.3 g/dL (32-36); Mean Corpuscular Volume 92.2 fL (80-100); Mean Platelet Volume 10.9 fL (7.4-10.4); Monocytes % (auto) 13.5 %; Neutrophils # (auto) 2.44 K/uL (1.4-6.5); Platelet Count 300 K/uL (130-400); RDW Coefficient of Variation 13.1 % (11.5-14.5); RDW Standard Deviation 44.2 fL (36.4-46.3); Red Blood Count 4.34 M/uL (4.2-5.4); White Blood Count 5.94 K/uL (4.8-10.8)
[2019-06-28 16:01] LABS: Appearance Urine Clear (Clear); Bilirubin Urine Negative (Negative); Blood Urine Negative (Negative); Color Urine Dark Yellow; Glucose Urine UA Negative (Negative); Ketones Urine Negative (Negative); Leukocyte Esterase Urine Negative (Negative); Nitrite Urine Negative (Negative); Protein Urine Negative (Negative); Specific Gravity Urine 1.035 (1.000-1.030); Urobilinogen Urine Negative (Negative)
[2019-06-28 16:06] LABS: Alanine Aminotransferase 35 U/L (12-78); Albumin Level 3.8 gm/dl (3.4-5.0); Aspartate Aminotransferase 20 U/L (15-37); BUN Creatinine Ratio 23.5 (10-20); Blood Urea Nitrogen 19 mg/dl (7-18); Calcium 10.1 mg/dl (8.5-10.1); Carbon Dioxide 33 mmol/L (21-32); Chloride 98 mmol/L (98-107); Creatinine Clr Calc Pharmacy 69.6 ml/min; Est GFR (African American) 86.6; Est GFR (Non-African American) 74.7; Glucose 99 mg/dl (70-99); Potassium 3.1 mmol/L (3.5-5.1); Sodium 135 mmol/L (136-145)
[2019-06-28 16:08] LABS: Alkaline Phosphatase 92 U/L (45-117); Bilirubin Direct < 0.1 mg/dl (0-0.2); Bilirubin,Total 0.4 mg/dl (0.2-1); Total Protein 8.1 gm/dl (6.4-8.2)
[2019-06-28 16:18] LABS: INR 1.1 (0.9-1.1); Partial Thromboplastin Time 27.9 Seconds (21.0-31.0); Prothrombin Time 11.4 Seconds (9.0-12.0)
[2019-07-20] MEDS ORDERED: SCOPOLAMINE 1.5 MG TDSY TD SCH (06:00)
[2019-07-20] MEDS ORDERED: LR 60ML/HR IV SCH (06:00)
[2019-07-20] MEDS ORDERED: TRANEXAMIC ACID 1,000 MG **IV Intra-op IV SCH (06:00)
[2019-07-20] MEDS ORDERED: CEFAZOLIN 2000MG 2,000 MG/15 ML SYR IV SCH (06:00)
[2019-07-20] MEDS ORDERED: LR 500ML BOLUS, THEN 15ML/HR IV SCH (06:00)
[2019-07-20] MEDS ORDERED: CeleBREX 200 MG CAP PO SCH (06:00)
[2019-07-20] MEDS ORDERED: TRANEXAMIC ACID 1,000 MG **IV Pre-op IV SCH (06:00)
[2019-07-20] MEDS ORDERED: ROPIVACAINE 0.5% HCL/PF 150 MG, BUPIVACAINE 0.5% MPF 30 ML, EPINEPHrine 0.15 MG, Ketoro... INFIL SCH (06:00)
[2019-07-20] MEDS ORDERED: BUPIVACAINE 0.5 % 5 MG/1 ML PF 10ML VIAL ONE (06:31)
[2019-07-20] MEDS ORDERED: ROPIVACAINE 0.5% 5 MG/ML 30 ML VIAL ONE (06:32)
[2019-07-20] MEDS ORDERED: fentaNYL citrate 100 MCG/2 ML VIAL ONE (06:36)
[2019-07-20] MEDS ORDERED: MIDAZOLAM HCL 1 MG/ML 2ML VIAL ONE (06:36)
--- NOTE | 2019-07-20 06:40 | History & Physical Bridge Note ---
Date of Service July 20, 2019 History & Physical Bridge Note I have examined the patient, reviewed the History & Physical and in the interval since the performance of the History & Physical I have noted the following changes of clinical significance: no changes noted
[2019-07-20] MEDS ORDERED: ORTHO JOINT ANESTHETIC ONE (06:55)
[2019-07-20] MEDS ORDERED: ATROPINE SULFATE 0.1 MG/ML 10ML SYR IV PRN (07:09)
[2019-07-20] MEDS ORDERED: ePHEDrine sulfate 50 MG/ML AMP IV PRN (07:09)
[2019-07-20] MEDS ORDERED: DEXAMETHASONE SOD INJ 4 MG/ML VIAL ONE (08:32)
[2019-07-20] MEDS ORDERED: PROPOFOL IV EMULSION 10 MG/ML 20 ML VIAL IV ONE (08:32)
[2019-07-20] MEDS ORDERED: ONDANSETRON INJ 2 MG/ML 2 ML VIAL ONE (08:32)
[2019-07-20] MEDS ORDERED: KETAMINE HCL INJ 50 MG/ML 10 ML VIAL ONE (09:46)
[2019-07-20] MEDS ORDERED: ALUMINUM/MAGNESIUM SUSP 30 ML UDC PO PRN (10:07)
[2019-07-20] MEDS ORDERED: NALOXONE HCL 0.4 MG/1 ML VIAL/CARP IV PRN (10:07)
[2019-07-20] MEDS ORDERED: ONDANSETRON INJ 2 MG/ML 2 ML VIAL IV PRN (10:07)
[2019-07-20] MEDS ORDERED: bisacodyL 10 MG SUPP PR PRN (10:07)
[2019-07-20] MEDS ORDERED: MAGNESIUM HYDROXIDE SUSP 30 ML UDC PO PRN (10:07)
[2019-07-20] MEDS ORDERED: DiphenhydrAMINE HCL 50 MG/ML VIAL IV PRN (10:07)
[2019-07-20] MEDS ORDERED: HYDROmorphone INJ 0.5 MG/0.5 ML SYR IV PRN (10:07)
[2019-07-20] MEDS ORDERED: METOCLOPRAMIDE HCL INJ 5 MG/ML 2 ML VIAL IV PRN (10:07)
[2019-07-20] MEDS ORDERED: FLUOCINONIDE 0.05% CR 15 GM TUBE EXT PRN (10:07)
--- NOTE | 2019-07-20 10:10 | Post Operative Brief Note ---
Immediate Post Op Note v1 Date of Surgery July 20, 2019 Pre & Post Diagnosis Operation Date: 07/20/19 07:00 Pre-Op Diagnosis: Right Knee Osteoarthritis Post-Op Diagnosis: Right Knee Osteoarthritis I identified the patient and participated in the time-out.: Yes Procedure Operation Date: 07/20/19 07:00 Actual Procedures p Right Total Knee Arthroplasty(Right) - Elan Alston MD Surgeon Elan Alston MD Telecommunications Sales Representative Avery Garcia MD & ZAK Villatoroc Estimated Blood Loss 100 Findings Consistent with Post-Op Diagnosis Fluids 2000 cc Specimens C Anesthesia Type MAC Spinal Regional Complications none
--- NOTE | 2019-07-20 10:12 | Operative Report ---
Post Operative Report Pre & Post Diagnosis Operation Date: 07/20/19 07:00 Pre-Op Diagnosis: Right Knee Osteoarthritis Post-Op Diagnosis: Right Knee Osteoarthritis I identified the patient and participated in the time-out.: Yes Procedure Operation Date: 07/20/19 07:00 Actual Procedures p Right Total Knee Arthroplasty(Right) - Elan Alston MD Surgeon Elan Alston MD Cracker Off Avery Garcia MD & Saulo Buckner PA-c Estimated Blood Loss 100 Findings See Below Examined Under Anesthesia: ROM -- There was 5 degrees to 120 degrees of flexion Ligamentous examination -- revealed stable posterior drawer, varus and valgus stress at 5 and 30 degrees, Maxime testing with 5 mm anterior translation and soft endpoint. Outerbridge Type IV changes of all 3 compartments, severe [id number] OA and tricompartment, large osteophytes, and subchondral cysts. Fluids 2000 cc Specimens Right knee contents Drains n/a Anesthesia Type MAC Spinal Regional Complications none Indications This is a 68-year-old female who has clinical and radiographic findings consistent with osteoarthritis of the a right knee. I recommended that a right total knee replacement be performed. The patient understands the risks of surgery, which include but not limited to: bleeding, infection, re-operation, damage to nerves and arteries, continued knee pain, knee stiffness, DVT, and de ath. The patient understands all of these instructions and explanations, all of his questions have been satisfactorily addressed and the patient has elected to proceed. Informed consent was signed. Description of Procedure IMPLANTS: 1. Femur: Triathlon #4 Right PS. 2. Tibia: Triathlon #4 [place]. 3. Insert: Triathlon #4 x 11 mm PS X3 poly. 4. Patella: Triathlon A29 x 9 mm X3 poly. 5. Simplex cement. Procedure: The patient was taken to the Operating Room and placed in the supine position after spinal and adductor canal nerve block was administered. My initials and a multidisciplinary time-out were used to identify the right leg as the correct operative limb. A tourniquet was placed high in the thigh. Prior to the incision, 2 grams of intravenous Ancef were given. The right leg was then prepped and draped in a standard sterile fashion. An Esmarch was used to exsanguinate the leg and the tourniquet was inflated to 250 mmHg. The planned mid-line 20 cm incision was created exposing the extensor mechanism. The medial parapatellar arthrotomy was made and the patella was everted. The patella was addressed first. It was prepared by reaming from 23 mm down to 13 mm. An A29 button was found to fit best. The peg holes were made in the standard fashion. The femur was addressed next and the guide dhruv was placed intramedullary. The initial cutting block was placed with 6 degrees of valgus and removing 10 mm for the anterior cut. The cut was made and the 4-in-1 cutting block for a size 5 femur was placed. These cuts and the cuts to place the box were made in the standard fashion. Our attention was then drawn to the tibia cut with the external cutting guide, taking 4 mm from the lateral low side. There was sufficient extension and flexion gap to fit a 11 mm spacer. A #4 Tibial baseplate fit well. A trial with a 11 mm spacer showed excellent stability in extension, with good ligament balance. In flexion, the trial poly disengaged from the tray. At that point due to the extension flexion mismatch, it was decided to increase the tibial slope 1-2 which was done by using the fercho wing and the tibial cutting guide and then adjusting the slope accordingly. The cutting block was pinned in place. The 1-2 of posterior slope was created. The trials were replaced and there was excellent stability and balance in both flexion and extension with thumbs free tracking of the patella. Range of motion of 0-120 degrees. The tibial baseplate which had been pinned in place underwent final preparation for the keel and stem was made. The subchondral cysts were curetted out. The medial aspect of the tibia had sclerotic bone at the most medial aspect. This area was drilled to allow incorporation of the cement. The tourniquet was deflated. Hemostasis was obtained. 90 ml of total knee cocktail were injected into the soft tissues and periosteum. A bone plug was placed in the femur and covered with bone wax. After a 10 minute break, the limb was exsanguinated again and the tourniquet was re-inflated. All surfaces were copiously irrigated prior to placement of the components. The femoral component and Tibial baseplate were cemented first and a 11 mm trial placed. The patellar button was also placed using the same batch of Simplex cement. Again with the 11 mm trial poly was placed and the range of motion and stability were unchanged. A small portion of the medial tibial bone overhang was removed after final component placement. Once the cement had cured, the 11 mm X3 poly was placed. The extensor mechanism was closed with 1-0 and 0 Vicryl with the knee bent approximately 60 degrees in a standard fashion. The peritenon and deep fascia was closed with 2-0 Vicryl. The subcutaneous layer was closed with 3-0 Vicryl. The skin was closed with Zipline. The limb was cleaned and dried. 4x4 dressing was placed over top followed by ABDs, sterile Webril, and a foot to thigh Ankit bandage. The patient was then transferred to the Recovery Room in stable condition. The sponge and needle counts were correct. POST-OP INSTRUCTIONS: The patient will be WBAT. The patient will be admitted to the hospital. The patient will use the knee immobilizer when ambulating and standing until good quad control is achieved. Labs will be obtained during the stay. DVT prophylaxis will included aspirin for 6 more weeks, TEDs, and mechanical foot pumps. The dressing will be changed prior to their discharge or postop day #2 and covered with a Silverlon dressing, whichever comes first. I attest to the content of the Intraoperative Record and any orders documented therein. Any exceptions are noted below.
--- NOTE | 2019-07-20 10:36 | Operative Report ---
Post Operative Report Pre & Post Diagnosis Operation Date: 07/20/19 07:00 Pre-Op Diagnosis: Right Knee Osteoarthritis Post-Op Diagnosis: Right Knee Osteoarthritis I identified the patient and participated in the time-out.: Yes Procedure Operation Date: 07/20/19 07:00 Actual Procedures p Right Total Knee Arthroplasty(Right) - Elan Levi Alston MD Surgeon Diego Garcia MD Logger Driving Horses Avery Garcia MD & Saulo Buckner PA-c Estimated Blood Loss 100 Findings Consistent with Post-Op Diagnosis Specimens Bone and synovium right knee Complications none Disposition Accompanied Patient To Recovery: Yes Disposition: Recovery Room Description of Procedure Supine, standard prep and drape, tourniquet, time out Right Total Knee Arthroplasty Please see Dr Alston's op notes for specific details I was present throughout the case, assisted for wound closure and transferred the patient to PACU in stable condition I attest to the content of the Intraoperative Record and any orders documented therein. Any exceptions are noted below.
--- NOTE | 2019-07-20 10:36 | Anesthesiology Progress Note ---
Date of Service July 20, 2019 Anesthesia Post Procedure Vital Signs Vital Signs: Temp Pulse Pulse Resp BP Pulse Ox 07/20/19 10:25 71 14 111/60 95 07/20/19 10:18 36.1 C L 80 17 120/79 97 07/20/19 05:37 36.8 C 55 L 20 142/86 H 96 Pain Intensity Right Knee: Pain Intensity: 0 Transfer of Care Handoff Completed per policy Notes Mental Status: alert / awake / arousable and participated in evaluation Patient Amnestic to Procedure: Yes Nausea / Vomiting: adequately controlled Pain: adequately controlled Airway Patency, RR, SpO2: stable & adequate BP & HR: stable & adequate Hydration State: stable & adequate Anesthetic Complications: no major complications apparent
--- NOTE | 2019-07-20 10:50 | XRay Report ---
XR knee RT 1 or 2V routine CLINICAL HISTORY: 68 years-old Female presenting with Surgical Post Op. TECHNIQUE: Frontal and lateral views of the right knee were obtained. COMPARISON: 11/05/2018. FINDINGS: Post surgical changes of total right knee arthroplasty with patellar resurfacing new from prior exam. Expected intra-articular and soft tissue emphysema. No periprosthetic fracture or lucency. No malali gnment. IMPRESSION: Expected postsurgical appearance status post total right knee arthroplasty with patellar resurfacing. ACT 112: Negative or not required by law. Electronically signed by: Leroy Lemus M.D. 07/20/2019 10:48 AM
[2019-07-20] MEDS: CHECK SCOPOLAMINE PATCH PLACEMENT SCH ×3 (12:49→23:46)
[2019-07-20] MEDS: SODIUM CHLORIDE 0.9% 1000ML 1,000 ML IV SCH ×2 (13:20→22:31)
[2019-07-20] MEDS: ACETAMINOPHEN 500 MG TAB PO SCH ×2 (14:31→21:00)
[2019-07-20] MEDS: OXYCODONE HCL IR 5 MG TAB (IMMEDIATE RELEASE) PO PRN ×2 (14:34→22:08)
[2019-07-20] MEDS: CEFAZOLIN 2000MG 2,000 MG/15 ML SYR IV SCH ×2 (15:22→22:31)
--- NOTE | 2019-07-20 16:51 | Orthopedic Progress Note ---
Date of Service July 20, 2019 Assessment & Plan (1) Knee osteoarthritis: POD #0 s/p right TKA, doing as well as expected. Resume diet. Continue pain control. WBAT RLE, with walker, and immobilizer for 48 hours or until demonstrates excellent quad control. PT/OT. Dressing change POD #2 or prior to discharge, whichever comes first. Will be changed to so overlying dressing, which will remain until 2 week postop visit. DVT prophylaxis: TEDs for 3 weeks, foot pumps while in the hospital, ASA BID for 6 weeks. Check a.m. labs. D/C planning. Present on Admission?: Yes Subjective Feeling sleepy. Some throbbing right knee, the pain medicine is helping. Review of Systems Review of Systems: All systems reviewed & are unremarkable except as noted in HPI & below Cardiovascular: no chest pain and no dyspnea Physical Exam 2 Physical Exam: RLE: Dressing is clean, dry, intact. She is able to her toes up and down. Sensation to light touch is intact distally. Brisk cap refill less than 2 seconds. Calf soft and nontender. Results & Data ([facility]) Vital Signs (Past 12 Hours) Vital Signs Temp Pulse Pulse Pulse Resp BP Pulse Ox 07/20/19 15:23 36.3 C L 55 L 16 103/65 93 07/20/19 14:21 52 L 16 106/69 95 07/20/19 13:22 58 L 18 95/57 L 96 07/20/19 12:17 36.2 C L 48 L 18 109/68 98 07/20/19 11:45 61 20 115/75 97 07/20/19 11:15 36.3 C L 59 L 18 120/79 97 07/20/19 11:00 59 L 13 123/71 95 07/20/19 10:45 36.3 C L 66 15 128/71 93 07/20/19 10:35 65 17 129/73 94 07/20/19 10:25 71 14 111/60 95 07/20/19 10:18 36.1 C L 80 17 120/79 97 07/20/19 05:37 36.8 C 55 L 20 142/86 H 96 Diagnostic Findings AP and lateral right knee, show cemented components in good position following right TKA.
[2019-07-20] MEDS: FERROUS GLUCONATE 324 MG TAB PO SCH (18:00)
[2019-07-20] MEDS: ASCORBIC ACID 500 MG TAB PO SCH (18:00)
[2019-07-20] MEDS: hydroCHLOROthiazide 25 MG TAB PO SCH (20:22)
[2019-07-20] MEDS: SENNA 8.6 MG TAB PO SCH (20:23)
[2019-07-20] MEDS: ATENOLOL 50 MG TABLET PO SCH (20:23)
[2019-07-20] MEDS: ASPIRIN 81 MG ECTAB PO SCH (20:23)
[2019-07-20] MEDS: DOCUSATE SODIUM 100 MG CAP PO SCH (20:23)
[2019-07-20] MEDS: ATORVASTATIN 40 MG TAB PO SCH (20:24)
[2019-07-21] MEDS: OXYCODONE HCL IR 5 MG TAB (IMMEDIATE RELEASE) PO PRN ×4 (02:29→20:45)
[2019-07-21] MEDS: ACETAMINOPHEN 500 MG TAB PO SCH ×3 (05:14→21:03)
[2019-07-21 05:42] LABS: Hematocrit (blood only) 30.3 % (37-47); Hemoglobin 10.4 g/dL (12.0-16.0); Mean Corpuscular Hemoglobin 30.9 pg (25-34); Mean Corpuscular Hgb Conc 34.3 g/dL (32-36); Mean Corpuscular Volume 89.9 fL (80-100); Mean Platelet Volume 10.4 fL (7.4-10.4); Platelet Count 257 K/uL (130-400); RDW Coefficient of Variation 13.2 % (11.5-14.5); Red Blood Count 3.37 M/uL (4.2-5.4); White Blood Count 11.59 K/uL (4.8-10.8)
[2019-07-21 06:21] LABS: Calcium 8.5 mg/dl (8.5-10.1); Creatinine Clr Calc Pharmacy 85.8 ml/min; Est GFR (African American) 104.3; Potassium 3.1 mmol/L (3.5-5.1)
--- NOTE | 2019-07-21 08:51 | Orthopedic Progress Note ---
Date of Service July 21, 2019 Assessment & Plan (1) Knee osteoarthritis: POD #1 s/p right TKA, doing as well as expected. Resume diet. Continue pain control. WBAT RLE, with walker, and immobilizer for 48 hours or until demonstrates excellent quad control. PT/OT. Dressing change POD #2 or prior to discharge, whichever comes first. Will be changed to so overlying dressing, which will remain until 2 week postop visit. DVT prophylaxis: TEDs for 3 weeks, foot pumps while in the hospital, ASA BID for 6 weeks. D/C planning. Subjective Some right knee pain overnight. Needed oral pain meds. Review of Systems Review of Systems: All systems reviewed & are unremarkable except as noted in HPI & below Physical Exam Physical Exam: RLE: dressing clean, dry, intact. Neurovascularly intact. calf soft and non-tender. Able to preform straight leg raise without immobilizer. Results & Data ([facility]) Vital Signs (Past 12 Hours) Vital Signs Temp Pulse Resp BP Pulse Ox 07/21/19 07:36 36.4 C L 51 L 16 101/61 92 07/21/19 02:43 36.6 C 46 L 15 100/62 92 07/20/19 23:27 36.5 C 65 16 104/63 95 Laboratory Results 07/21/19 07/21/19 07/21/19 Range/Units 04:59 04:59 04:59 WBC 11.59 H (4.8-10.8) K/uL RBC 3.37 L (4.2-5.4) M/uL Hgb 10.4 L (12.0-16.0) g/dL Hct 30.3 L (37-47) % MCV 89.9 (80-100) fL MCH 30.9 (25-34) pg MCHC 34.3 (32-36) g/dL RDW Std Deviation 43.0 (36.4-46.3) fL RDW Coeff of Janna 13.2 (11.5-14.5) % Plt Count 257 (130-400) K/uL MPV 10.4 (7.4-10.4) fL Sodium 132 L (136-145) mmol/L Potassium 3.1 L (3.5-5.1) mmol/L Chloride 98 (98-107) mmol/L Carbon Dioxide 28 (21-32) mmol/L Anion Gap 7.0 (3-11) BUN 13 (7-18) mg/dl Creatinine 0.65 (0.6-1.2) mg/dl Est Cr Clr Drug Dosing 85.8 ml/min Est GFR ( Amer) 104.3 Est GFR (Non-Af Amer) 90.0 BUN/Creatinine Ratio 20.0 (10-20) Glucose 114 H (70-99) mg/dl Calcium 8.5 (8.5-10.1) mg/dl Hepatitis C Ab Screen Pending
[2019-07-21] MEDS: CHECK SCOPOLAMINE PATCH PLACEMENT SCH ×2 (08:58→16:51)
[2019-07-21] MEDS: ASPIRIN 81 MG ECTAB PO SCH ×2 (09:06→20:33)
[2019-07-21] MEDS: ASCORBIC ACID 500 MG TAB PO SCH ×2 (09:06→17:38)
[2019-07-21] MEDS: CHOLECALCIFEROL 1,000 UNITS 25 MCG TAB PO SCH (09:06)
[2019-07-21] MEDS: MULTIVITAMIN TAB PO SCH (09:06)
[2019-07-21] MEDS: DOCUSATE SODIUM 100 MG CAP PO SCH ×2 (09:06→20:33)
[2019-07-21] MEDS: FERROUS GLUCONATE 324 MG TAB PO SCH ×2 (09:07→17:38)
--- NOTE | 2019-07-21 14:17 | Orthopedic Progress Note ---
Date of Service July 21, 2019 Assessment & Plan (1) Knee osteoarthritis: POD #1 s/p right TKA, doing as well as expected. Continue regular diet. Continue stool softners. Continue pain control. WBAT RLE, with walker, and immobilizer for 48 hours or until demonstrates excellent quad control. PT/OT. Dressing change POD #2. Will be changed to silverlon dressing, which will remain until 2 week postop visit. DVT prophylaxis: TEDs for 3 weeks, foot pumps while in the hospital, ASA BID for 6 weeks. D/C planning with HHPT. Tentative plans for 07-22-19. Subjective Patient in bed watching TV and knitting with her at bedside. She is doing well. Took one oxycodone today. Participated in PT. Somewhat sore after. Hasnt yet had a BM. Voiding ok. Tolerating regular diet. Denies f/c/s, CP, SOB, lightheadedness, dizziness, N/V. Case Management working on HHPT plans upon D/C tentatively planned for tomorrow. Physical Exam Physical Exam: Right LE post-op dressings intact. L LE Paresh hose on. NV intact B LE with palpable DP and PT pulses. Sensation intact to light touch. Able to wiggle B foot and ankles. B LE calves soft and non tender. Results & Data ([facility]) Vital Signs (Past 12 Hours) Vital Signs Temp Pulse Resp BP Pulse Ox 07/21/19 11:21 36.8 C 61 16 105/67 94 07/21/19 07:36 36.4 C L 51 L 16 101/61 92 07/21/19 02:43 36.6 C 46 L 15 100/62 92 Laboratory Results 07/21/19 07/21/19 07/21/19 Range/Units 04:59 04:59 04:59 WBC 11.59 H (4.8-10.8) K/uL RBC 3.37 L (4.2-5.4) M/uL Hgb 10.4 L (12.0-16.0) g/dL Hct 30.3 L (37-47) % MCV 89.9 (80-100) fL MCH 30.9 (25-34) pg MCHC 34.3 (32-36) g/dL RDW Std Deviation 43.0 (36.4-46.3) fL RDW Coeff of Janna 13.2 (11.5-14.5) % Plt Count 257 (130-400) K/uL MPV 10.4 (7.4-10.4) fL Sodium 132 L (136-145) mmol/L Potassium 3.1 L (3.5-5.1) mmol/L Chloride 98 (98-107) mmol/L Carbon Dioxide 28 (21-32) mmol/L Anion Gap 7.0 (3-11) BUN 13 (7-18) mg/dl Creatinine 0.65 (0.6-1.2) mg/dl Est Cr Clr Drug Dosing 85.8 ml/min Est GFR ( Amer) 104.3 Est GFR (Non-Af Amer) 90.0 BUN/Creatinine Ratio 20.0 (10-20) Glucose 114 H (70-99) mg/dl Calcium 8.5 (8.5-10.1) mg/dl Hepatitis C Ab Screen Neg (Neg)
[2019-07-21] MEDS: ATENOLOL 50 MG TABLET PO SCH (20:32)
[2019-07-21] MEDS: hydroCHLOROthiazide 25 MG TAB PO SCH (20:32)
[2019-07-21] MEDS: SENNA 8.6 MG TAB PO SCH (20:33)
[2019-07-21] MEDS: ATORVASTATIN 40 MG TAB PO SCH (20:33)
[2019-07-22] MEDS: CHECK SCOPOLAMINE PATCH PLACEMENT SCH ×2 (00:19→08:11)
[2019-07-22 00:37] VITALS: O2SAT 93
[2019-07-22] MEDS: ACETAMINOPHEN 500 MG TAB PO SCH ×2 (05:35→13:08)
[2019-07-22 07:51] VITALS: BP 117/70; TEMP 97.9
[2019-07-22] MEDS: FERROUS GLUCONATE 324 MG TAB PO SCH (08:11)
[2019-07-22] MEDS: ASCORBIC ACID 500 MG TAB PO SCH (08:12)
[2019-07-22] MEDS: OXYCODONE HCL IR 5 MG TAB (IMMEDIATE RELEASE) PO PRN ×2 (08:15→12:11)
[2019-07-22] MEDS: DOCUSATE SODIUM 100 MG CAP PO SCH (08:57)
[2019-07-22] MEDS: MULTIVITAMIN TAB PO SCH (08:58)
[2019-07-22] MEDS: CHOLECALCIFEROL 1,000 UNITS 25 MCG TAB PO SCH (08:58)
[2019-07-22] MEDS: ASPIRIN 81 MG ECTAB PO SCH (08:58)
[2019-07-22 10:27] VITALS: PULSE 52
--- NOTE | 2019-07-22 11:21 | Orthopedic Progress Note ---
Date of Service July 22, 2019 Assessment & Plan (1) Knee osteoarthritis: POD #2 s/p right TKA, doing as well as expected. Continue regular diet. Continue stool softners. Continue pain control. WBAT RLE, with walker, immobilizer dcd. Dressing changed to silverlon, which will remain until 2 week postop visit. DVT prophylaxis: TEDs for 3 weeks, foot pumps while in the hospital, ASA BID for 6 weeks. D/C planning with HHPT. D/C today after PT and lunch. I, Dr. Alston, saw and examined the patient and agree with the above findings and plan of care discussed with my PA. Subjective Patient in bed knitting with her at bedside. She is doing well. Tolerated PO pain medication. Tolerating PO diet. Able to void, but no BM yet. Denies abdominal pain. Denies f/c/s, CP, SOB, lightheadedness, dizziness, N/V. Hasnt yet has AM PT. Ready to go home this afternoon. Physical Exam Physical Exam: right knee dressings removed. Incision dry and intact. no signs of infection. zip line intact. 1+ right knee effusion. trace r le pitting edema. calf soft. neg homans. nv intact. palpable dp and pt pulses. sensation intact to light touch. 5/5 ehl, ta, and gastroc strength. left leg nv intact. calve soft. dayanna hose donned. Results & Data ([facility]) Vital Signs (Past 12 Hours) Vital Signs Temp Pulse Pulse Pulse Resp BP Pulse Ox 07/22/19 10:24 36.6 C 59 L 69 52 L 16 117/70 93 07/22/19 07:48 36.6 C 69 16 117/70 93 07/21/19 23:54 36.7 C 69 15 110/65 93
--- NOTE | 2019-07-22 16:26 | Discharge Summary ---
ADMISSION DIAGNOSIS: Right knee osteoarthritis. DISCHARGE DIAGNOSES: Right knee osteoarthritis, status post right total knee arthroplasty. CONDITION ON DISCHARGE: Stable. PROCEDURE PERFORMED: Right total knee arthroplasty performed by Dr. Alston on 07/20/2019. CONSULTATIONS: Anesthesia. HOSPITAL COURSE: A 68-year-old female admitted status post right total knee arthroplasty performed by Dr. Alston on 07/20/2019. Anesthesia consisted of an epidural and a femoral nerve block. She had no complications with the surgery. The patient worked well with physical therapy while an inpatient. She was able to ambulate with the use of a walker and the knee immobilizer. The patient did well on oral pain medications. She tolerated a regular diet. She tolerated 24 hours postop Ancef. She had regular voiding episodes; however, has not yet had a bowel movement. She has been on stool softeners. She denies any abdominal pain. She had blood work on postop day 1 including a CBC with diff and electrolytes with hemoglobin being 10.4 without displaying any signs or symptoms of anemia. Potassium low at 3.1, but unchanged from prior blood work from 06/28/2019. Sodium low at 132 compared to 06/28/2019 at 135. On postop day #2, the patient was deemed stable for discharge. Her postop dressing was changed to a Silverlon dressing, which was waterproof and recommended to stay on until her followup appointment with our office. While in the hospital, she required JIMMY hose, foot pumps, and aspirin for DVT prophylaxis. Upon discharge the foot pumps were discontinued, but JIMMY hose and aspirin were continued. The patient was discharged home with her with home health PT to start 2-3 times a week. DISCHARGE INSTRUCTIONS AND MEDICATIONS: The patient is to be discharged home to the care of her with home health physical therapy. Diet is regular. Activities: Weightbearing as tolerated to the right lower extremity with the use of a walker. She will continue with home health physical therapy. She will be discharged on aspirin 81 mg twice a day for DVT prophylaxis as well as JIMMY hose to be worn during the day, can be removed at night until at least her followup appointment with our office. She was also discharged on vitamin C and iron to take for 14 days. She was recommended to take Tylenol for mild to moderate pain and was given a prescription for oxycodone for severe pain 5 mg 1-2 every 4-6 hours. The PDMP was previously checked; there were no issues. The Silverlon dressing is a waterproof dressing which will remain on until her followup appointment in our office. I am also recommending that she restart her potassium supplement that she has at home and increase her salt intake. We will repeat a chemistry profile in 1 week. She was advised to call the office if she experiences any signs or symptoms of infection or has any other questions or concerns. . Otherwise, she will follow up as scheduled in 2 weeks. MAUDE
== END 2019-07-22 13:38 | disposition home health service (06) | DRG 470 ==
LOC: ASU 04:56 → 3E 10:07
DX: E87.6 Hypokalemia; Z82.49 Family history of ischemic heart disease and other diseases of the circulatory system; Z86.73 Personal history of transient ischemic attack (TIA), and cerebral infarction without residual deficits; Z79.899 Other long term (current) drug therapy; R03.0 Elevated blood-pressure reading, without diagnosis of hypertension; Z88.6 Allergy status to analgesic agent; Z88.0 Allergy status to penicillin; E78.5 Hyperlipidemia, unspecified; L71.9 Rosacea, unspecified; M17.0 Bilateral primary osteoarthritis of knee; Z86.19 Personal history of other infectious and parasitic diseases; E87.1 Hypo-osmolality and hyponatremia; Z88.8 Allergy status to other drugs, medicaments and biological substances

== ENCOUNTER 2023-07-01 06:32 | Observation (INO) ==
--- NOTE | 2023-06-06 10:33 | PAT Medication Instructions ---
Medication Instructions Date of Service June 06, 2023 Home Medications Medication Instructions Recorded acetaminophen 500 mg tablet 1,000 mg (2 x 500 mg) PO TID PRN 07/22/19 (Tylenol Extra Strength) pain #60 tabs atorvastatin 40 mg tablet 40 mg PO QPM diphenhydramine HCl 25 mg capsule (Benadryl) 25 mg PO HS PRN Sleep doxycycline hyclate 20 mg tablet 20 mg PO QPM PRN rosacea flare up fluocinonide 0.05 % topical cream 1 applic topical UD PRN RASH metronidazole 0.75 % topical cream 1 applic topical QAM PRN rosacea flare up atenolol 50 mg-chlorthalidone 25 mg tablet 1 tab PO QPM cholecalciferol (vitamin D3) 50 mcg (2,000 unit) capsule (Vitamin D3) 50 mcg PO DAILY acetaminophen 500 mg tablet (Tylenol Extra Strength) 1,000 mg (2 x 500 mg) PO TID PRN pain STOP taking 24 hours before surgery fluocinonide 0.05 % topical cream 1 applic topical UD PRN RASH metronidazole 0.75 % topical cream 1 applic topical QAM PRN rosacea flare up DO NOT take the morning of surgery cholecalciferol (vitamin D3) 50 mcg (2,000 unit) capsule (Vitamin D3) 50 mcg PO DAILY Take morning of surgery With a small sip of water, OTHERWISE NOTHING TO EAT OR DRINK AFTER MIDNIGHT: acetaminophen 500 mg tablet (Tylenol Extra Strength) 1,000 mg (2 x 500 mg) PO TID PRN pain (if needed) Take evening before surgery atorvastatin 40 mg tablet 40 mg PO QPM diphenhydramine HCl 25 mg capsule (Benadryl) 25 mg PO HS PRN Sleep (if needed) doxycycline hyclate 20 mg tablet 20 mg PO QPM PRN rosacea flare up (if needed) atenolol 50 mg-chlorthalidone 25 mg tablet 1 tab PO QPM acetaminophen 500 mg tablet (Tylenol Extra Strength) 1,000 mg (2 x 500 mg) PO TID PRN pain (if needed) Other Notes If you have any questions please call us at [phone] or [phone] or [phone] or [phone]
--- NOTE | 2023-06-11 11:31 | Anesthesiology Consultation ---
Date of Service June 11, 2023 Assessment & Plan (1) Encounter for pre-operative examination: - Infectious disease screening: Per assessment on 06/11/23: No known infectious disease contacts or current infectious disease symptoms. No noted recent Covid positive test result. - Outpatient joint assessment: Pt currently scheduled for inpatient pathway. If surgeon requests review for outpatient joint pathway, patient is an acceptable candidate for outpatient joint program from anesthesia standpoint pending surgeon's office assessment that patient is motivated, has good support and completes Same Day Joint Program preop requirements. - S/P Right TKA (09/18/2019): SAB at L3-4 + regional at [facility] - Anxious: T/C preop anxiolytic. Patient reports she was anxious prior to Right TKA (09/2019, [place]) and preop anxiolytic was given that helped. - Patient acceptable risk for surgery pending surgeon-ordered PCP preop evaluation (Dr. Bender, appt 06/12). Chart Review Chart Review: Patient seen in Pre Admission Testing Teaching & Discussion Pre-Anesthesia Teaching/Discussion Notes: Instructed NPO after midnight before surgery,except medications with 15 cc of water. Medication instructions provided according to the PAT guidelines. History Surgery Operation Date: 07/01/23 07:00 Proposed Procedures p Left Total Knee Arthroplasty - Elan Levi Alston MD Height/Weight Height: 5 ft 5 in Weight: 85.3 kg Allergies Allergy/AdvReac Type Severity Reaction Status Date / Time Penicillins Allergy Mild Rash Verified 06/10/23 14:36 aspirin AdvReac Unknown Advised to Verified 06/10/23 14:36 avoid (hx hemorrhagic stroke) NSAIDS (Non-Steroidal AdvReac Unknown Advised to Verified 06/10/23 14:36 Anti-Inflamma avoid (hx hemorrhagic stroke) Medications Home Medications Medication Instructions Recorded Confirmed Last Taken atorvastatin 40 mg tablet 40 mg PO QPM 01/05/19 06/05/23 07/19/19 20:00 diphenhydramine HCl 25 mg capsule 25 mg PO HS PRN Sleep 01/05/19 06/05/23 07/19/19 22:00 (Benadryl) doxycycline hyclate 20 mg tablet 20 mg PO QPM PRN rosacea flare up 01/05/19 06/05/23 07/19/19 20:00 fluocinonide 0.05 % topical cream 1 applic topical UD PRN RASH 01/14/19 06/05/23 Unknown metronidazole 0.75 % topical cream 1 applic topical QAM PRN rosacea 01/14/19 06/05/23 07/19/19 08:00 flare up atenolol 50 mg-chlorthalidone 25 1 tab PO QPM 06/21/19 06/05/23 07/19/19 20:00 mg tablet cholecalciferol (vitamin D3) 50 50 mcg PO DAILY 06/21/19 06/05/23 07/19/19 20:00 mcg (2,000 unit) capsule (Vitamin D3) acetaminophen 500 mg tablet 1,000 mg (2 x 500 mg) PO TID PRN 07/22/19 06/05/23 Unknown (Tylenol Extra Strength) pain #60 tabs Past Medical History Medical History Hx of rosacea Knee osteoarthritis Hx of Lyme disease Approximately 2018, no residual effects Osteoarthritis History of stroke Hemorrhagic (2009)- treated at [facility]; no residual deficits Rosacea High blood pressure Hyperlipidemia Exercise / Class Metabolic Activity II 4-5 Yardwork/Stairs/Walk up hill Past Family History Family History Other Family history of prostate cancer in father Past Surgical History Surgical History Nausea after anesthesia Single episode (1970s after knee surgery) [place] teeth extracted History of total right knee replacement Right TKA (09/18/2019): SAB at L3-4 + regional at [facility] History of colonoscopy History of hysterectomy History of gynecologic surgery Ovarian cystectomy + USO + Appe History of right knee surgery ACL repair Past Anesthesia History No Hx of Anesthesia Complications and No Family Hx of Anesthesia Complications History of PONV No Hx of Motion Sickness and History of PONV (Single episode ) Social History Smoking Status: Never smoker Do You Dip or Chew Tobacco: No Hx Alcohol Use: Yes Alcohol type: wine alcohol intake frequency: 0-2 drinks per day Hx Substance Use: No substance use type: does not use Review of Systems Patient denies chest pain, shortness of breath, dyspnea on exertion, fever, chills, cough, wheezing, palpitations. Physical Exam Vital Signs VITALS BP 134/78 P 52 TEMP 97.7 SP02 97%RA RESP 18 PHYSICAL Full cervical extension range of motion. Full TMJ range of motion. TMD 3 finger breaths Mallampati Score 2 Dentition: intact, + caps Lungs: clear throughout to auscultation Cardiac: regular rate and rhythm, no murmurs noted Spine: normal Carotid arteries: negative bruit Extremities: no LE edema Lab Results Anesthesia Preop Results Results Anesthesia Widget: WBC 7.93 K/ul (4.8-10.8) 06/11/23 Hgb 12.9 g/dl (12.0-16.0) 06/11/23 Hct 38.9 % (37.0-47.0) 06/11/23 Plt 364 K/uL (130-400) 06/11/23 Na 132 mmol/L (136-145) L 06/11/23 K 3.6 mmol/L (3.5-5.1) 06/11/23 Cl 93 mmol/L (98-107) L 06/11/23 CO2 32 mmol/L (21-32) 06/11/23 BUN 15 mg/dl (6-23) 06/11/23 Creat 0.63 mg/dl (0.6-1.2) 06/11/23 Glucose Level 99 mg/dl (70-99(Fasting)) 06/11/23 PT 11.5 Seconds (9.0-12.0) 06/11/23 PTT 30 Seconds (21-31) 06/11/23 INR 1.1 (0.9-1.1) 06/11/23 Urine Color Yellow 06/11/23 Urine Appearance Clear (Clear) 06/11/23 Urine pH 7.5 (4.5-7.5) 06/11/23 Urine Specific [place] 1.015 (1.000-1.030) 06/11/23 Urine Protein Negative (Negative) 06/11/23 Urine Glucose (UA) Negative (Negative) 06/11/23 Urine Ketones Negative (Negative) 06/11/23 Urine Blood Negative (Negative) 06/11/23 Urine Nitrite Negative (Negative) 06/11/23 Urine Bilirubin Negative (Negative) 06/11/23 Urine Urobilinogen Negative (Negative) 06/11/23 Urine Leukocyte Esterase 2+ (Negative) H 06/11/23 Urine WBC (Auto) 5-10 /hpf (0-5) H 06/11/23 Urine RBC (Auto) 0-4 /hpf (0-4) 06/11/23 Urine Hyaline Casts (Auto) 0 /lpf (0-5) 06/11/23 Urine Epithelial Cells (Auto) >30 /lpf (0-5) H 06/11/23 Urine Bacteria (Auto) Negative (Negative) 06/11/23 Blood Type O Positive 06/11/23 Antibody Screen NEGATIVE 06/11/23 Testing Electrocardiogram Date: 06/11/23 SB with sinus arrhythmia at 49bpm. NS STA. No significant change compared to 01/30/2019 per plugger man comparison. Chest X-Ray Date: 06/11/23 FINDINGS: PA and lateral chest radiographs are compared to study dated 07/30/2022. The cardiomediastinal silhouette is top normal for projection. The lungs and pleural spaces are clear. There is no pneumothorax. The skeletal structures are osteopenic. The bony thorax appears intact. Degenerative change and mild hyperkyphosis is noted in the spine. IMPRESSION: No active disease in the chest.
[~2023-07-01 06:32] MED LIST changes: +ACETAMINOPHEN 500 MG TAB PO SCH; -ATEN-171 PO; +LR 500ML BOLUS, THEN 15ML/HR IV SCH; +LR 60ML/HR IV SCH; +ROPIV 0.5% 246mg, Ketorolac 30mg, EPINEPHrine 0.5mg in NSS INFIL SCH; +ROPIVACAINE 0.5% 5 MG/ML 30 ML VIAL ONE; +Scopolamine 1 MG TDSY TD SCH; +TRANEXAMIC ACID 1,000 MG **IV Intra-op IV SCH; +TRANEXAMIC ACID 1,000 MG **IV Pre-op IV SCH
--- OUTSIDE RECORDS SUMMARY | 2023-07-01 06:36 | External Medical Summary | Continuity of Care Document ---
Author Name Unknown Organization [facility] [employer] [place] [id number] Address [address] [place] [phone] Care Team Providers Care Dump Operator Name Role Phone NapoleonBrigidoernst Caroline Primary Care Physician [phone] [id number] Date(s): 06/11/23 - 06/11/23 [facility] [address] [employer] [facility] [address] [facility] Medicine [address] [place] [id number] Encounter Diagnosis OA (osteoarthritis) of knee(Discharge Diagnosis) - 06/11/23 Discharge Disposition: Home or Self Care Attending Physician: SUZY Carcamo, Swati Referring Physician: MD Alecia, Elan A Allergies, Adverse Reactions, Alerts Substance Reaction Severity Status penicillin Rash Active hydrALAZINE rash, pruritis Mild Active aspirin hemorhagic stroke Active NSAIDS (nonsteroidal anti-inflammatory agents) hemorrh agic stroke Active Immunizations Given and Recorded Vaccine Date Status Refusal Reason influenza virus vaccine, inactivated 03/12/23 Give n influenza virus vaccine, inactivated 02/27/22 Papi rded influenza virus vaccine, inactivated 02/02/20 Papi rded influenza virus vaccine, inactivated 02/23/19 Give n influenza virus vaccine, inactivated 03/10/18 Papi rded influenza virus vaccine, inactivated 03/18/17 Give n influenza virus vaccine, inactivated 1 04/19/15 Re corded SARS-CoV-2 mRNA (Pfizer 12+) bivalent 12/28/22 Rec orded SARS-CoV-2 mRNA (Pfizer 12+) bivalent 03/14/22 Rec orded pneumococcal 23-valent vaccine 2 09/09/22 Given SARS-CoV-2 (COVID-19) mRNA-1273 vaccine 08/12/20 R ecorded SARS-CoV-2 (COVID-19) mRNA-1273 vaccine 07/20/20 R ecorded zoster vaccine, inactivated 07/06/20 Recorded zoster vaccine, inactivated 02/02/20 Recorded pneumococcal 13-valent vaccine 01/06/18 Given zoster vaccine live 3 10/14/13 Given tetanus/diphtheria/pertuss, acel (Tdap) 10/14/13 G iven influenza virus vaccine, H1N1 4 07/12/09 Recorded yellow fever vaccine 5 02/17/07 Recorded tetanus toxoids-diphtheria, Td (Adult) 6 02/17/07 Recorded hepatitis A adult vaccine 7 02/17/07 Recorded 1Result Comment: [04/20/2015] Got High-Dose at [facility] 2Result Comment: Letitia Rodriguez RN 3Result Comment: sterile diluent [id number] jan 28 4Result Comment: 2020-12-14: Historical information-source unspecified 5Result Comment: 2020-12-14: Historical information-source unspecified 6Result Comment: 2020-12-14: Historical information-source unspecified 7Result Comment: 2020-12-14: Historical information-source unspecified Medications amoxicillin 500 mg oral capsule Start: 01/16/22 16:15:00 EDT, 4 cap, PO, As indicated, Disp# 12 cap, Refills: 4, one hour before dental and other procedures as directed, Pharmacy: [id number] Start Date: 01/16/22 Status: Ordered atenolol-chlorthalidone 50 mg-25 mg oral tablet Start: 03/12/23 10:52:00 EDT, See Instructions, Disp# 90 tab, Refills: 3, TAKE 1 TABLET BY MOUTH EVERY DAY, Pharmacy: [id number] Start Date: 03/12/23 Status: Ordered atorvastatin 40 mg oral tablet Start: 03/12/23 10:52:00 EDT, See Instructions, Disp# 90 tab, Refills: 3, TAKE 1 TABLET BY MOUTH ATBEDTIME, Pharmacy: [id number] Start Date: 03/12/23 Status: Ordered doxycycline 20 mg oral tablet Start: 01/27/23 14:22:00 EDT, See Instructions, Disp# 60 tab, Refills: 6, TAKE 1 TABLET BY MOUTH EVERY 12 HOURS, Pharmacy: [id number] Start Date: 01/27/23 Status: Ordered fluocinonide 0.05% topical cream Start: 01/17/22 14:37:00 EDT, See Instructions, Disp# 60 g, Refills: 1, APPLY TOPICALLY TO LEGS TWOTIMES DAILY, Pharmacy: [id number] Start Date: 01/17/22 Status: Ordered MetroCream 0.75% topical cream Start: 01/27/23 14:23:00 EDT, 1 appl, topical, bid, Disp# 45 g, Refills: 2, Pharmacy: [id number] Start Date: 01/27/23 Status: Ordered Tessalon Perles 100 mg oral capsule Start: 03/12/23 11:01:00 EDT, 1 cap, PO, q8h, Disp# 30 cap, Refills: 1, PRN: as needed for cough, Pharmacy: [id number] Start Date: 03/12/23 Status: Ordered Tylenol 500 mg oral tablet Start: 02/23/19 11:17:00 EDT, 2 tab, PO, q6h, PRN: as needed for pain Start Date: 02/23/19 Status: Ordered Mental Status 06/11/23 Barriers to Learning one year None evide nt Mandatory Health Literacy Documentation Yes Health Literacy Communication Barriers N ever Primary Language Pashto Problem List Condition Confirmation Course Effective Dates Status H ealth Status Informant S/P TKR (total knee replacement) Confirmed Active Hyperlipidemia Confirmed Active Hypertension Confirmed Active OA (osteoarthritis) of knee Confirmed Active Travel advice encounter Confirmed Active Weight disorder Confirmed Active Diagnosis Diagnosis Type Effective Dates Health Status Cl inical Service Informant OA (osteoarthritis) of knee Discharge Diagnosis 06/11/23 Procedures Procedure Date Related Diagnosis Body Site Status Chest x-ray 1 07/30/22 Completed US scan of head and neck 2 07/09/22 Completed Shave biopsy and cauterization of skin 02/27/21 Completed Mammogram 3 03/22/20 Completed Shave biopsy and cauterisati on of skin 4 10/26/19 Completed Total knee arthroplasty 5 07/20/19 Completed Mammogram - screening 6 03/10/18 C ompleted Shave biopsy and cauterization of skin 02/13/18 Completed Mammogram - screening 7 03/07/17 C ompleted Colonoscopy 8 02/27/17 Completed Mammogram 03/05/16 Completed Mammogram 03/03/15 Completed Colonoscopy 9 12/25/12 Completed Hysterectomy 1986 Completed Ovarian cystectomy, unilater al or bilateral 1976 Completed ACL - Anterior cruciate liga ment rupture 1974 Completed Mammogram 10 Completed 1Impression: No active disease in the chest 2Impression: Multiple benign-appearing lymph nodes are seen measuring up to 1.0 x 0.8 x 0.4 cm. 3IMPRESSION: ACR BI-RADS CATEGORY 2: BENIGN There is no mammographic evidence of malignancy. A 1 year screening mammogram is recommended. 4ED&C 5Right total knee arthroplasty. 6There is no mammographic evidence of malignancy. A 1 year screening mammogram is recommended. 7There is no mammographic evidence of malignancy. A 1 year screening mammogram is recommended. 8-One 3 mm polyp in the cecum, removed with a cold biopsy forceps. Resected and retrieved. -One 3 mm polyp at 20 cm proximal to the anus, removed with a cold biopsy forceps. Resected and retrieved. -Many 1 to 3 mm polyps in the rectum, removed with a cold biopsy forceps. Resected and retrieved. -The descending colon, ascending colon and terminal ileum are normal. Biopsied. -The distal rectum and anal verge are normal on retroflexion view. Await pathology results. 9repeat 5 years 10No evidence of malignancy re check in 1 year. Vital Signs Most recent to oldest [Reference Range]: 1 Height 164.5 cm (06/11/23 10:30 AM) Patient Weight 84.0 kg (06/11/23 10:30 AM) Body Mass Index 31.04 kg/m2 (06/11/23 10:30 AM) Temperature [36.5-37.9 DegC] 36.2 DegC *LOW* (06/11/23 10:30 AM) Respiratory Rate 20 br/min (06/11/23 10:30 AM) Blood Pressure 130/82mmHg (06/11/23 10:30 AM) Cuff Pulse Pressure 48 mmHg (06/11/23 10:30 AM) Social History Social History Type Response Smoking Status Never smoked cigaret galileo Sex Female History and physical note * SUZY Carcamo, Swati: PERFORM Event Display: . Authored Date: Primary Care Provider MD Napoleon, Luci Velazquez Referring Provider MD Alecia, Elan A Chief Complaint pre op l tka History of Present Illness Marybel is a 72-year-old female here today for reoperative history and physical for left total knee arthroplasty with Dr. Alston. She previously had her right knee done 07/20/2019. She says she has been putting this off for a while. She last had a cortisone injection 03/13/[address] Alston. She says that the injection started to not help her. Risk and benefits were discussed with the patient and she is elected to proceed with surgical intervention. She has a history of a hemorrhagic stroke [id number]. Denies any trauma or being on blood thinners previouslybut she says that she tries to stay away from any NSAIDs due to the risk of bleeding althoughshe is able to take it every now and then. She says that for her last surgery forshetoday for 6 weeks and did well with that. She has high blood pressure high cholesterol is well-controlled with medications. She denies anyhistory of heart attack, blood clotsor diabetes. Review of Systems DeniesRecent illnesses, colds/flu, pneumonia, COVID or COVID exposures; DeniesFevers, chills, malaise; DeniesChest pain, heart palpitations; DeniesShortness of breath, cough; DeniesHeadacheor blurry vision; DeniesAbdominal pain, nausea, vomiting, diarrhea, or urinary symptoms Physical Exam Vitals & Measurements T:36.2C RR:20 BP:130/82 SpO2:98% HT:164.5cm WT:84.0kg WT:84.000kg(Dosing) BMI:31.04 General: Pt is well nourished, seated on the exam table AA&O, in NAD, calm and cooperative during exam HENT: Nontraumatic, no gross deformity, hearing and vision grossly in-tact, PERRL Heart: +S1, +S2, RRR, no murmurs appreciated Lungs: CTABL, no wheezing appreciated Focusing on the patient'sleftlower extremity: 2+ DP pulse Sensation to light touch is intact Motor to the gastroc soleus, tibialis anterior, and EHL is 5/5. Able to perform straight leg raise. +Lateraljoint line tenderness. Ligamentous examination exhibits:stable [id number] anterior translation andfirm endpoint Posterior drawerstable Varus stress at 0 and 30stable Valgus stress at 0 and 30stable - NoEffusion Left kneeROM: 0 to 100 Right knee ROM: 0 to 110 Obvious Valgus deformity Previous incisions on right knee are well-healed [1] Diagnostic Results RADIOGRAPHY: Bilateral APstanding, sunrise, and lateral views views of thebilateral kneesobtained today and personally interpreted by Dr Alston show right total knee components are cemented, no evidence of loosening,slight lateraltracking on the sunrise. There is dwps-jx-pped lateral compartment arthritis, marginal osteophytes, sclerosis, and subchondral cysts in the left knee. Dr Gaoeviewed bilateral hips to ankles from02/2021 that show total cemented components on right and14 Valgus alignment on the left knee[2] Assessment/Plan 1.OA (osteoarthritis) of knee pre-op The risks and benefits of surgery as well as the post operative course was explained and discussed with the patient. Written consent obtained. The patient's past medical history, surgeries, social history, medication list, allergies and PDMP were reviewed and confirmed with the patient. Nav needmedical clearance. He has an appointment scheduled with Dr. Bender.She has PAT appointment today at the hospital.She says that she already has a walker, and a shower seat. She did not need a raised toilet seat last time for surgery. Preoperative orders were placed. We discussed postoperative pain medications includingoxycodone, tylenol,as well as icing and elevating to control pain. She has a Iceman machine from her friend that she will use. DVT prophylaxis -ASA 81mg BID x 6 weeks and JIMMY stockings x 2 weeks. We discussed this with her history of a hemorrhagic strokeshe tries to stay away from any NSAIDs but she says occasional use is okay in the last knee surgery she was on the aspirin twice a day for 6 weeks and did well with this. Additional medications -stool softener as needed to prevent constipation while on narcotics, multi-vitamin OR Vitamin C 500mg BID x 2 weeks, Iron 324mg BID x 2 weeks to promote healing. The patient has been scheduled for post operative appointments, including any PT or HH services, per surgeon's preference. Like todo home health again and physical therapy with us. Orders were placed. The patient was given a preoperative booklet and we reviewed the most pertinent things leading up to the surgery and the dayof surgery; including any assisted devices pt may need, when/who to call for the surgery time, where to arrive the day of surgery, NPO after midnight, medications to hold, prepping the skin with CHG to prevent infection etc. All of their questions and concerns were answered today. They were instructed to call our office if they have any further questions or concerns. Problem List/Past Medical History Ongoing Hyperlipidemia Hypertension OA (osteoarthritis) of knee S/P TKR (total knee replacement) Travel advice encounter Weight disorder Historical Achilles tendon disorder Acute URI Blurred vision Contact allergic reaction Hemorrhagic stroke Rash Routine adult health maintenance Tick bite Weakness Procedure/Surgical History Chest x-ray (07/30/2022)US scan of head and neck (07/09/2022)Shave biopsy and cauterization of skin (02/27/2021)Mammogram (03/22/2020)Shave biopsy and cauterisation of skin (10/26/2019)Total knee arthroplasty (07/20/2019)Mammogram - screening (03/10/2018)Shave biopsy and caut erization of skin (02/13/2018)Mammogram - screening (03/07/2017)Colonoscopy (02/27/2017)Mammogram (03/05/2016)Mammogram (03/03/2015)Colonoscopy (12/25/2012)Hysterectomy (1986)Ovarian cystectomy, unilateral or bilateral (1976)ACL - Anterior cruciate ligament rupture (1974)Mammogram Medications acetaminophen(Tylenol 500 mg oral tablet), 1000 mg= 2 tab, PO, q6h, PRN amoxicillin(amoxicillin 500 mg oral capsule), 2000 mg= 4 cap, PO, As indicated, 4 refills atenolol-chlorthalidone(atenolol-chlorthalidone 50 mg-25 mg oral tablet), See Instructions, 3 refills atorvastatin(atorvastatin 40 mg oral tablet), See Instructions, 3 refills benzonatate(Tessalon Perles 100 mg oral capsule), 100 mg= 1 cap, PO, q8h, PRN, 1 refills doxycycline(doxycycline 20 mg oral tablet), See Instructions, 6 refills fluocinonide topical(fluocinonide 0.05% topical cream), See Instructions, 1 refills metroNIDAZOLE topical(MetroCream 0.75% topical cream), 1 appl, topical, bid, 2 refills Allergies hydrALAZINE (Mild)rash, pruritis penicillinRash trys to avoid NSAIDs/ASA d/t h/o hemorrhagic stroke but no true allergy - has taken before occassionally and has been okay Social History Smoking Status Never smoked cigarettes Alcohol Use:Current Type:Wine Frequency:Daily Exercise Times per week:3-4 times/week Exercise type:Aerobics, Weight lifting Nutrition/Health Diet description:Yogurt, vegetables, hummus, cutting back on meats. Type of diet:Calorie restricted Substance Abuse - Denies Substance Abuse Tobacco - Denies Tobacco Use Use:Never smoker Family History Hypertension: Mother. Health Status Family Member(s) Family Member(s) Relationship: Mother, Age: 82 Years, Cause: pneumonia Relationship: Father, Age: 89 Years, Cause: prostate cancer Immunizations Vaccine Date Status influenza virus vaccine, inactivated 03/12/2023 Given SARS-CoV-2 mRNA (Pfizer 12+) bivalent 12/28/2022 Recorded pneumococcal 23-valent vaccine 09/09/2022 Given Comments : Letitia Rodriguez RN SARS-CoV-2 mRNA (Pfizer 12+) bivalent 03/14/2022 Recorded influenza virus vaccine, inactivated 02/27/2022 Recorded SARS-CoV-2 (COVID-19) mRNA-1273 vaccine 08/12/2020 Recorded SARS-CoV-2 (COVID-19) mRNA-1273 vaccine 07/20/2020 Recorded zoster vaccine, inactivated 07/06/2020 Recorded zoster vaccine, inactivated 02/02/2020 Recorded influenza virus vaccine, inactivated 02/02/2020 Recorded influenza virus vaccine, inactivated 02/23/2019 Given influenza virus vaccine, inactivated 03/10/2018 Recorded pneumococcal 13-valent vaccine 01/06/2018 Given influenza virus vaccine, inactivated 03/18/2017 Given influenza virus vaccine, inactivated 04/19/2015 Recorded Comments : [04/20/2015] [facility] live 10/14/2013 Given Comments : sterile diluent [id number] jan 28 tetanus/diphtheria/pertuss, acel (Tdap) 10/14/2013 Given influenza virus vaccine, H1N1 07/12/2009 Recorded Comments : 2020-12-14: Historical information-source unspecified yellow fever vaccine 02/17/2007 Recorded Comments : 2020-12-14: Historical information-source unspecified tetanus toxoids-diphtheria, Td (Adult) 02/17/2007 Recorded Comments : 2020-12-14: Historical information-source unspecified hepatitis A adult vaccine 02/17/2007 Recorded Comments : 2020-12-14: Historical information-source unspecified Recommendations Health Maintenance Pending(in the next year) Due Adult COVID-19 Vaccination due06/11/23Unknown Frequency Adult Social Determinants of Health Screening due06/11/23Unknown Frequency Hepatitis C Screening due06/11/23One-time only Medicare Annual Wellness Visit due06/11/23and every 1year Due In Future Adult Influenza Vaccine not due until12/15/23and every 1year Satisfied(in the past 1 year) Satisfied Adult COVID-19 Vaccination on12/28/22.Satisfied by NAHEED Rodriguez Gillian Adult Influenza Vaccine on03/12/23.Satisfied by ABI Schmidt Sara Body Mass Index on06/11/23.Satisfied by CHELSEA Gongora Natasha Breast Cancer Screening on04/03/23.Satisfied by ABI Winters Lynnae [1]Elan Alston; Sveta Grissom 03/13/2023 14:24 EDT [2]Elan Alston; Sveta Grissom 03/13/2023 14:24 EDT Electronic Signature on File Electronically Reviewed/Signed by: Swati Carcamo PA-C Author Signature Dt/Tm:06/11/2023 01:58 PM Physician Baseball Inspector, Dept. of Orthopaedics and Sports Medicine [facility] [place] [id number] [facility], [address] [place] [address] Electronically Reviewed/Signed by: MD Jewels Contreras Signature Dt/Tm: 06/11/2023 05:06 PM [place] [facility] Canvas Repairer Department of Orthopaedics and Rehabilitation [facility] [address], [place] [address] [place] Patient Care team information Care Team Personnel Name: DiJohnson, Serena L Position: HIS Supervisor_P Member Role: HIS Lifetime Name: MD Napoleon, Luci Velazquez Position: Physician Member Role: Primary Care Provider Address: Address: [address] [facility] [address] [place] [address], [place] [address] Care Team Related Persons Name: ORALIA TOLENTINO Address: [place] Address: home [address] [place] [phone] Name: BRI SILVERIO
--- OUTSIDE RECORDS SUMMARY | 2023-07-01 06:36 | External Medical Summary | Continuity of Care Document ---
Author Name Unknown Organization [address] Address [address] [place] [address] [address], [place] [id number] Care Team Providers Care Water And Gas Helper Name Role Phone Luci Bender Primary Care Physician [phone] Encounter [facility] JANI [id number] Date(s): 06/12/23 - 06/12/[address] [place] [facility] [address] [facility] [address], [address] [place] [address] [phone] Encounter Diagnosis Preoperative evaluation to rule out surgical contraindication(Discharge Diagnosis) - 06/12/23 Body mass index [BMI] 32.0-32.9, adult(Discharge Diagnosis) - 06/12/23 Discharge Disposition: Home or Self Care Attending Physician: Alejandra Herrera DO, Mariana Annette Allergies, Adverse Reactions, Alerts Substance Reaction Severity Status penicillin Rash Active hydrALAZINE rash, pruritis Mild Active aspirin hemorhagic stroke Active NSAIDS (nonsteroidal anti-inflammatory agents) hemorrh agic stroke Active Assessment and Plan Extracted from: Title:Office Visit Note Author:Alejandra Herrera DO, Mariana Annette Date:06/12/23 1.Preoperative evaluation to rule out surgical contraindication Her RCRI score is 1, which puts her at a 6% 30 day risk for , [place] or cardiac arrest (however patient without cardiac risk factors, risk elevated due to stroke Hx). She had a stable EKG with anesthesiology yesterday (SB with sinus arrhythmia at 49 bmp, unchanged from 2019). Patient did very well after her R TKA in 2019. Post-op DVT PPx will be aspirin 81mg and dayanna hose. She is at an acceptable risk for surgery and may proceed with the planned procedure. Immunizations Given and Recorded Vaccine Date Status [...] Recorded 1Result Comment: [04/20/2015] Got High-Dose at [facility] 2Result Comment: Letitia Rodriguez RN 3Result Comment: sterile diluent [id number] jan 28 4Result Comment: 2020-12-14: Historical information-source unspecified 5Result Comment: 2020-12-14: Historical information-source unspecified 6Result Comment: 2020-12-14: Historical information-source unspecified 7Result Comment: 2020-12-14: Historical information-source unspecified Medications amoxicillin 500 mg oral capsule Start: 01/16/22 16:15:00 EDT, 4 cap, PO, As indicated, Disp# 12 cap, Refills: 4, one hour before dental and other procedures as directed, Pharmacy: [id number] Start Date: 01/16/22 Status: Ordered atenolol-chlorthalidone 50 mg-25 mg oral tablet Start: 03/12/23 10:52:00 EDT, See Instructions, Disp# 90 tab, Refills: 3, TAKE 1 TABLET BY MOUTH EVERY DAY, Pharmacy: [id number] Start Date: 03/12/23 Status: Ordered atorvastatin 40 mg oral tablet Start: 03/12/23 10:52:00 EDT, See Instructions, Disp# 90 tab, Refills: 3, TAKE 1 TABLET BY MOUTH ATBEDTIME, Pharmacy: [id number] Start Date: 03/12/23 Status: Ordered doxycycline 20 mg oral tablet Start: 01/27/23 14:22:00 EDT, See Instructions, Disp# 60 tab, Refills: 6, TAKE 1 TABLET BY MOUTH EVERY 12 HOURS, Pharmacy: [id number] Start Date: 01/27/23 Status: Ordered fluocinonide 0.05% topical cream Start: 01/17/22 14:37:00 EDT, See Instructions, Disp# 60 g, Refills: 1, APPLY TOPICALLY TO LEGS TWOTIMES DAILY, Pharmacy: [id number] Start Date: 01/17/22 Status: Ordered MetroCream 0.75% topical cream Start: 01/27/23 14:23:00 EDT, 1 appl, topical, bid, Disp# 45 g, Refills: 2, Pharmacy: [id number] Start Date: 01/27/23 Status: Ordered Tessalon Perles 100 mg oral capsule Start: 03/12/23 11:01:00 EDT, 1 cap, PO, q8h, Disp# 30 cap, Refills: 1, PRN: as needed for cough, Pharmacy: [id number] Start Date: 03/12/23 Status: Ordered Tylenol 500 mg oral tablet Start: 02/23/19 11:17:00 EDT, 2 tab, PO, q6h, PRN: as needed for pain Start Date: 02/23/19 Status: Ordered Mental Status 06/12/23 Barriers to Learning one year None evide nt Mandatory Health Literacy Documentation Yes Health Literacy Communication Barriers N ever Primary Language Sammarinese Problem List Condition Confirmation Course Effective Dates Status H ealth Status Informant S/P TKR (total knee replacement) Confirmed Active Hyperlipidemia Confirmed Active Hypertension Confirmed Active OA (osteoarthritis) of knee Confirmed Active Travel advice encounter Confirmed Active Weight disorder Confirmed Active Diagnosis Diagnosis Type Effective Dates Health Status Clinical Service Informant Preoperative evaluation to rule out surgical contraindication Discharge Diagnosis 06/12/23 Body mass index [BMI] 32.0-32.9, adult Discharge Diagnosis 06/12/23 Non-Specified Procedures Procedure Date Related Diagnosis Body Site [...] recent to oldest [Reference Range]: 1 Height 161.8 cm (06/12/23 3:38 PM) Patient Weight 85.2 kg (06/12/23 3:38 PM) Body Mass Index 32.54 kg/m2 (06/12/23 3:38 PM) Temperature [36.5-37.9 DegC] 35.8 DegC *LOW* (06/12/23 3:38 PM) Heart Rate 61 bpm (06/12/23 3:38 PM) Blood Pressure 124/80mmHg (06/12/23 3:38 PM) Cuff Pulse Pressure 44 mmHg (06/12/23 3:38 PM) Social History Social History Type Response Smoking Status Never smoked cigaret galileo Sex Female FCM Outpt Note * Alejandra Herrera DO, Mariana Annette: PERFORM, MODIFY Event Display: FCM Outpt Note Authored Date: [id number] Chief Complaint Preop left knee replacement 07/01/22. History of Present Illness PRE-OPERATIVE EVALUTION Requested by:Dr. Alston Planned surgery: Left TKA [ X]Intermediate risk(intraperitoneal, intrathoracic, CEA, head/ neck, ortho, urologic, prostate) Exercise tolerance: >10 METs [Very vigorous exercise]:biking fast; running race, racquetball, skip rope fast, competitive soccer; swimming laps fast. She participates in an exercise class 5 days a week doessquats, push ups. Bleeding tendency:Denies h/o bleeding disorders or blood clots Substance use:None Prior anesthesia:No history of anesthesia complications with prior surgeries Revised Cardiac Risk Index: Score=0 or 1 [0] Higher Risk Surgery (intraperitoneal, intrathoracic, supra-inguinal vascular) [0] Ischemic Heart Disease [0] History of CHF [1] History of cerebrovascular disease (History of hemorrhagic stroke in 2008 w/o residual symptoms) [0] Insulin therapy for DM [0] Pre-op Cr >2 Total Score=1 Physical Exam Vitals & Measurements T:35.8C HR:61(Monitored) BP:124/80 SpO2:97% HT:161.8cm WT:85.200kg(Dosing) WT:85.2kg BMI:32.54 PHQ2 Data(Data Documented on:06/12/2023 15:36) Emotional health assessment NEGATIVE General: _Alert and oriented, No acute distress Cardiovascular: _Normal rate, Regular rhythm, No murmur, No gallop. Respiratory: _Lungs are clear to auscultation, Respirations are non-labored, Breath sounds are equal Psych: Mood-affect congruence. Reports no SI/HI. Speech is of normal pace and content Assessment/Plan 1.Preoperative evaluation to rule out surgical contraindication Her RCRI score is 1, which puts her at a 6% 30 day risk for , [place] or cardiac arrest (however patient without cardiac risk factors, risk elevated due to stroke Hx). She had a stable EKG with anesthesiology yesterday (SB with sinus arrhythmia at 49 bmp, unchanged from 2019). Patient did very well after her R TKA in 2019. Post-op DVT PPx will be aspirin 81mg and dayanna hose. She is at an acceptable risk for surgery and may proceed with the planned procedure. Attestation Time spent: Pre-visit planning: _15 Yghk-og-ewwk visit: _10 Post-visit (orders/documentation/coordination of care): Total visit time: _25 Problem List/Past Medical History Ongoing Hyperlipidemia Hypertension [...] bid, 2 refills Allergies hydrALAZINE (Mild)rash, pruritis NSAIDS (nonsteroidal anti-inflammatory agents)hemorrhagic stroke aspirinhemorhagic stroke penicillinRash Social History Smoking Status Never smoked cigarettes [...] Recorded Comments : [04/20/2015] Got High-Dose at [facility] zoster vaccine live 10/14/2013 Given Comments : sterile diluent [id number] jan 28 tetanus/diphtheria/pertuss, acel (Tdap) 10/14/2013 Given [...] the next year) Due Adult COVID-19 Vaccination due06/12/23Unknown Frequency Adult Social Determinants of Health Screening due06/12/23Unknown Frequency Hepatitis C Screening due06/12/23One-time only Medicare Annual Wellness Visit due06/12/23and every 1year Due In Future Adult Influenza Vaccine not due until12/15/23and every 1year Satisfied(in the past 1 year) Satisfied Adult COVID-19 Vaccination on12/28/22.Satisfied by NAHEED Rodriguez Gillian Adult Influenza Vaccine on03/12/23.Satisfied by ABI Schmidt Sara Body Mass Index on06/12/23.Satisfied by CHELSEA Minor Angela Breast Cancer Screening on04/03/23.Satisfied by ABI Winters Lynnae Electronic Signature on File CC: Elan Alston MD [address] [facility] [address] [place] [id number] Electronically Reviewed/Signed by: Gaby Herrera DO Author Signature Dt/Tm:06/12/2023 04:05 PM Department of Family Medicine Electronically Reviewed/Signed by: Gaby Herrera DO Cosigner Signature Dt/Tm: 06/12/2023 04:06 PM Department of Family Medicine MAF Patient Care team information Care Team Personnel Name: Leonie Serena L Position: HIS Supervisor_P Member Role: HIS Lifetime Name: MD Napoleon, Luci Velazquez Position: Physician Member Role: Primary Care Provider Address: Address: [address] [place] [address], [place] [address] Care Team Related Persons Name: ORALIA TOLENTINO Address: [place] Address: [address] [id number] Name: BRI SILVERIO
[2023-07-01] MEDS ORDERED: ATROPINE SULFATE 0.1 MG/ML 10ML SYR IV PRN (07:18)
[2023-07-01] MEDS ORDERED: HYDROmorphone INJ 1 MG/ML SYRINGE IV PRN ×2 (07:18→14:14)
[2023-07-01] MEDS ORDERED: ONDANSETRON INJ 2 MG/ML 2 ML VIAL IV PRN ×2 (07:18→14:14)
[2023-07-01] MEDS ORDERED: ePHEDrine sulfate 50 MG/ML AMP IV PRN (07:18)
[2023-07-01] MEDS ORDERED: MIDAZOLAM HCL 1 MG/ML 2ML VIAL ONE ×2 (07:28→08:50)
--- NOTE | 2023-07-01 07:47 | History & Physical Bridge Note ---
Date of Service July 01, 2023 History & Physical Bridge Note I have examined the patient, reviewed the History & Physical and in the interval since the performance of the History & Physical I have noted the following changes of clinical significance: no changes noted
[2023-07-01] MEDS ORDERED: BUPIVACAINE 0.5 % 5 MG/1 ML PF 10ML VIAL ONE (08:01)
[2023-07-01] MEDS ORDERED: ORTHO JOINT ANESTHETIC ONE (08:27)
[2023-07-01] MEDS ORDERED: PROPOFOL IV EMULSION 10 MG/ML 20 ML VIAL IV ONE ×2 (08:59→10:53)
[2023-07-01] MEDS ORDERED: ONDANSETRON INJ 2 MG/ML 2 ML VIAL ONE (09:02)
[2023-07-01] MEDS ORDERED: GLYCOPYRROLATE 0.2 MG/ML VIAL ONE (09:02)
[2023-07-01] MEDS ORDERED: LIDOCAINE 2% 2 ML VIAL/AMP(20MG/ML) INFIL ONE (09:02)
[2023-07-01] MEDS ORDERED: fentaNYL citrate PF 100 MCG/2 ML VIAL ONE (09:09)
[2023-07-01] MEDS ORDERED: ePHEDrine sulfate 50 MG/5 ML SYR ONE (09:14)
[2023-07-01] MEDS ORDERED: ceFAZolin 2000MG 2,000 MG/15 ML SYR IV ONE (09:24)
--- NOTE | 2023-07-01 11:13 | Post Operative Brief Note ---
Immediate Post Op Note v1 Date of Surgery July 01, 2023 Pre & Post Diagnosis Operation Date: 07/01/23 08:00 Pre-Op Diagnosis: Left Knee Osteoarthritis, Valgus Alignment Post-Op Diagnosis: Left Knee Osteoarthritis, Valgus Alignment I identified the patient and participated in the time-out.: Yes Procedure Operation Date: 07/01/23 08:00 Actual Procedures p Left Total Knee Arthroplasty, Cemented(Left) - Elan Alston MD Surgeon Elan Alston MD Supervisor Inspection Saulo Alejandro PA-C (No fellow avail) Estimated Blood Loss 75 Findings Consistent with Post-Op Diagnosis Fluids 1400 cc Specimens Left knee contents Anesthesia Type MAC Spinal Regional Complications none
--- NOTE | 2023-07-01 11:14 | Operative Report ---
Post Operative Report Pre & Post Diagnosis Operation Date: 07/01/23 08:00 Pre-Op Diagnosis: Left Knee Osteoarthritis, Valgus Alignment Post-Op Diagnosis: Left Knee Osteoarthritis, Valgus Alignment I identified the patient and participated in the time-out.: Yes Procedure Operation Date: 07/01/23 08:00 Actual Procedures p Left Total knee replacement, imageless computer assisted navigation, Cemented(Left) - Elan Alston MD Surgeon Elan Alston MD Warehouse Shipping Clerk Saulo Alejandro PA-C (No fellow avail) Estimated Blood Loss 75 Findings Consistent with Post-Op Diagnosis Examined Under Anesthesia: ROM -- There was 5 degrees to 120 degrees of flexion Ligamentous examination -- revealed stable Maxime, posterior drawer, varus stress at 0 pseudolaxity with noted crepitus and 30 degrees stable, and valgus stress at 0 and 30 degrees stable. Outerbridge Grade IV changes in all 3 compartments, with marginal and intercondylar osteophytes. There was significant synovitis in the suprapatellar pouch. Multiple small loose bodies posteriorly. Fluids 1400 cc Specimens Left knee contents Anesthesia Type MAC Spinal Regional Complications none Indications This is a 72-year-old female who has clinical and radiographic findings consistent with osteoarthritis of the a left knee, and valgus alignment. I recommended that a left total knee replacement be performed. The patient understands the risks of surgery, which include but not limited to: bleeding, infection, re-operation, damage to nerves and arteries, continued knee pain, knee stiffness, DVT, and . The patient understands all of these instructions and explanations, all of his questions have been satisfactorily addressed and the patient has elected to proceed. Informed consent was signed. Description of Procedure IMPLANTS: 1. Femur: Triathlon #4 Left PS. 2. Tibia: Triathlon #4 Gleason. 3. Insert: Triathlon #4 x 16 mm PS X3 poly. 4. Patella: Triathlon A29 x 9 mm X3 poly. 5. Palacos cement. Saulo Alejandro PA-C is assisting with positioning, retracting, and closure due to fellow not available. Procedure: The patient was taken to the Operating Room and placed in the supine position after spinal and adductor canal nerve block was administered. My initials and a multidisciplinary time-out were used to identify the left leg as the correct operative limb. A tourniquet was placed high in the thigh. Prior to the incision, 2 grams of intravenous Ancef were given. The left leg was then prepped and draped in a standard sterile fashion. An Esmarch was used to exsanguinate the leg and the tourniquet was inflated to 250 mmHg. The planned mid-line 20 cm incision was created exposing the extensor mechanism. The medial parapatellar arthrotomy was made and the patella was everted. The patella was addressed first, removing any osteophytes. It was prepared by reaming from 23 mm down to 14 mm. An A29 button was found to fit best. The peg holes were made in the standard fashion. The femur was addressed next and using computer assisted OrthoAlign with 3 degrees of flexion and 5 degrees of valgus, so as not to completely correct her valgus, removing 10 mm in the standard fashion for the distal cut. The cut was made and the 4-in-1 cutting block for a size 4 femur was placed. These cuts and the cuts to place the box were made in the standard fashion. Our attention was then drawn to the tibia cut with using imageless computer assisted OrthoAlign, taking 4 mm from the lateral low side. There was sufficient extension and flexion gap to fit a 16 mm spacer. A #4 Tibial baseplate fit well. A trial with a 16 mm spacer showed excellent stability in both flexion and extension, with good ligament balance, and thumbs free patellar tracking. Range of motion of 0-130 degrees. The tibial baseplate was prepped for the keel and stem. All components were removed. 90 ml of total knee cocktail were injected into the soft tissues and periosteum. All surfaces were copiously irrigated prior to placement of the components. The femoral component followed by Tibial baseplate were cemented in place and a 16mm trial placed. Next, the patellar button was placed using the same cement. Once the cement had cured, the range of motion and stability were unchanged. The 16 mm X3 poly was placed. Again, the range of motion and stability were unchanged. The tourniquet was deflated. Hemostasis was obtained. The extensor mechanism was closed with 1-0 Vicryl and 0 Stratafix with the knee bent approximately 60 degrees in a standard fashion. The peritenon and deep fascia was closed with 2-0 Vicryl. The subcutaneous layer was closed with 3-0 Vicryl. The skin was closed with Zipline and shield. The limb was cleaned and dried. 4x4 dressing was placed over top followed by ABDs, sterile Webril, and a foot to thigh Ankit bandage. The patient was then transferred to the Recovery Room in stable condition. The sponge and needle counts were correct. POST-OP INSTRUCTIONS: The patient will be WBAT. The patient will be admitted to the hospital. Complete 24-hour course antibiotics. Labs will be obtained during the stay. PT/OT. Hospitalist consult for medical management. DVT prophylaxis will included aspirin for 6 weeks (She does not have a true allergy to aspirin, h/o hemorrhagic stroke and ASA was felt to be best DVT prophylaxis with least risk for repeat bleeding), TEDs, and mechanical foot pumps. The dressing will be changed postop day #2-3 and covered with a Silverlon dressing. I attest to the content of the Intraoperative Record and any orders documented therein. Any exceptions are noted below.
--- NOTE | 2023-07-01 11:35 | Operative Report ---
Post Operative Report Pre & Post Diagnosis Operation Date: 07/01/23 08:00 Pre-Op Diagnosis: Left Knee Osteoarthritis, Valgus Alignment Post-Op Diagnosis: Left Knee Osteoarthritis, Valgus Alignment I identified the patient and participated in the time-out.: Yes Procedure Operation Date: 07/01/23 08:00 Actual Procedures p Left Total Knee Arthroplasty, Cemented(Left) - Elan Alston MD Surgeon Elan Alston M.D. Respiratory Technician Saulo Alejandro PA-C (No fellow avail) Estimated Blood Loss 75 Findings Consistent with Post-Op Diagnosis DJD left knee Specimens Left knee DJD Anesthesia Type MAC Regional Description of Procedure Patient was taken to the operating room, placed under IV sedation, with pe ripheral nerve block. Time out performed, prepped and draped in routine sterile fashion. She was given 2gm IV ancef for surgical prophylaxis. She was given 1gm IV TXA preoperatively. I was present during the entire procedure, please see Dr. Alston's operative report for further detail. Patient was awakened and taken to the recovery room in stable condition. I attest to the content of the Intraoperative Record and any orders documented therein. Any exceptions are noted below.
--- NOTE | 2023-07-01 12:29 | Anesthesiology Progress Note ---
Date of Service July 01, 2023 Anesthesia Post Procedure Vital Signs Vital Signs: Temp Pulse Pulse Resp BP Pulse Ox O2 Del Method 07/01/23 12:00 60 17 131/65 99 Room Air 07/01/23 11:50 36.3 C L 55 L 12 129/62 97 Room Air 07/01/23 11:40 64 12 133/66 100 Oxymask 07/01/23 11:32 36.0 C L 66 16 128/78 98 Oxymask 07/01/23 06:50 36.6 C 56 L 18 164/85 H 97 Room Air O2 Flow Rate 07/01/23 12:00 07/01/23 11:50 07/01/23 11:40 4 07/01/23 11:32 4 07/01/23 06:50 Transfer of Care Handoff Completed per policy Notes Mental Status: alert / awake / arousable Patient Amnestic to Procedure: Yes Nausea / Vomiting: adequately controlled Pain: adequately controlled Airway Patency, RR, SpO2: stable & adequate BP & HR: stable & adequate Hydration State: stable & adequate Neuraxial Anesthesia: was administered and sensory block is resolving Anesthetic Complications: no major complications apparent
--- NOTE | 2023-07-01 12:32 | XRay Report ---
XR knee LT 1 or 2V routine CLINICAL HISTORY: Surgical Post Op TECHNIQUE: 2 views of the left knee were obtained. Comparison: Comparison is made to leg length radiographs 07/24/2020 FINDINGS: Patient is status post total knee arthroplasty with expected postsurgical changes including soft tiss ue swelling and subcutaneous emphysema. No periarticular lucency or hardware fracture is seen. IMPRESSION: Expected postoperative appearance status post placement of total knee arthroplasty. ACT 112: Negative or not required by law. Electronically signed by: Will Garcia M.D. 07/01/2023 12:31 PM
[2023-07-01] MEDS ORDERED: MAGNESIUM HYDROXIDE SUSP 30 ML UDC PO PRN (14:14)
[2023-07-01] MEDS ORDERED: HYDROmorphone INJ 0.5 MG/0.5 ML SYR IV PRN (14:14)
[2023-07-01] MEDS ORDERED: bisacodyL 10 MG SUPP PR PRN (14:14)
[2023-07-01] MEDS ORDERED: diphenhydrAMINE 50 MG/ML VIAL IV PRN (14:14)
[2023-07-01] MEDS ORDERED: NALOXONE HCL 0.4 MG/1 ML VIAL/CARP IV PRN (14:14)
[2023-07-01] MEDS ORDERED: METOCLOPRAMIDE HCL INJ 5 MG/ML 2 ML VIAL IV PRN (14:14)
--- NOTE | 2023-07-01 14:20 | Orthopedic Progress Note ---
Date of Service July 01, 2023 Assessment & Plan (1) Knee osteoarthritis: Plan: POD #0 s/p L TKA, doing as well as expected. Resume diet. WBAT with walker. OOB to chair. Continue pain control. Check labs tomorrow. DVT prophylaxis: TEDs 3 weeks, foot pumps while in hospital, ASA 81 mg BID for 6 weeks. PT/OT. D/C planning. Appreciate medicine input Will plan on changing the dressing to a Silverlon postop day 2 or 3. Present on Admission?: Yes Admission and Anticipated Discharge Date Admission Date: July 01, 2023 Subjective Feeling pretty good. Physical Exam Physical Exam: LLE: Dressing clean, dry, intact. Wiggling toes and ankle. BCR < 2 sec. Sensation to light touch intact distally. Able to preform a straight leg raise. Results & Data Vital Signs (Past 12 Hours) Vital Signs Temp Pulse Pulse Resp BP Pulse Ox O2 Del Method 07/01/23 13:00 36.3 C L 52 L 16 117/63 96 Room Air 07/01/23 12:30 55 L 17 110/62 97 Room Air 07/01/23 12:00 60 17 131/65 99 Room Air 07/01/23 11:50 36.3 C L 55 L 12 129/62 97 Room Air 07/01/23 11:40 64 12 133/66 100 Oxymask 07/01/23 11:32 36.0 C L 66 16 128/78 98 Oxymask 07/01/23 06:50 36.6 C 56 L 18 164/85 H 97 Room Air O2 Flow Rate 07/01/23 13:00 07/01/23 12:30 07/01/23 12:00 07/01/23 11:50 07/01/23 11:40 4 07/01/23 11:32 4 07/01/23 06:50 Laboratory Results Impressions Knee X-Ray 07/01/23 11:41 XR knee LT 1 or 2V routine CLINICAL HISTORY: Surgical Post Op TECHNIQUE: 2 views of the left knee were obtained. Comparison: Comparison is made to leg length radiographs 07/24/2020 FINDINGS: Patient is status post total knee arthroplasty with expected postsurgical changes including soft tissue swelling and subcutaneous emphysema. No periarticular lucency or hardware fracture is seen. IMPRESSION: Expected postoperative appearance status post placement of total knee arthroplasty. ACT 112: Negative or not required by law. Electronically signed by: Will Garcia M.D. 07/01/2023 12:31 PM
[2023-07-01] MEDS: ACETAMINOPHEN 500 MG TAB PO SCH ×2 (15:02→21:41)
[2023-07-01] MEDS: SODIUM CHLORIDE 0.9% 1,000 ML IV SCH (15:03)
[2023-07-01] MEDS: Scopolamine CHECK PATCH PLACEMENT SCH (16:05)
--- NOTE | 2023-07-01 16:05 | Hospitalist Consultation ---
Date of Consultation July 01, 2023 Assessment & Plan (1) S/P left knee surgery: Left total knee arthroplasty with Dr. Alston on 07/01/23 Left knee x-ray revealed expected postoperative appearance s/p total knee arthroplasty Perioperative antibiotics, pain control, fluids, and DVT PPx per primary team OOB in chair with assistance as tolerated Agree with a.m. CBC, BMP; we will follow Hx of hypokalemia while inpatient; monitor with a.m. BMP PT/OT consulted (2) HTN (hypertension): Continue atenolol Recommend holding chlorthalidone x 2 days, and restarting on the evening of 07/03 (3) Hyperlipidemia: Continue atorvastatin (4) Hx of rosacea: Hold rosacea meds Plan Agree with medical decision making Disposition: MedSurg Regular diet VTE PPx: Teds/SCDs, ASA 81mg BID Thank you for allowing us to participate in the care of this patient, please reach out with any questions or concerns. Supervising Physician Co-Signing Physician Notes I personally saw and examined the patient. I independently reviewed the labs, EKG, imaging, problem list, medication list, past medical history and family history. I verified all jimenez points and agree with Keanu Moody PA-C with the following exceptions and/or additions: 72 year old female POD#0 left TKA. No questions or concerns from the patient. O/E HS RRR, no murmurs, Chest CTAB, Abdo SNT A/P VTE/Pain/Bowel management per primary orthopedic team HTN - continue atenolol, hold chlorthalidone Otherwise as above History of Present Illness Reason for Consultation: Medical management Requesting Physician: Elan Alston MD Attending Physician: Elan Alston MD History of Present Illness Joann is a 72-year-old female with PMH of HTN, rosacea, knee osteoarthritis, DJD left knee, and hemorrhagic CVA. She presented for a left total knee arthroplasty with Dr. Alston at 0800 on 07/01/2023. Per review of operative r eport, EBL was listed as 75cc, and MAC regional anesthesia was used. At time of consult, patient endorses left knee pain that she rates 7/10 prior to receiving pain medication. She reports that the pain radiates along her left anterior thigh down to her mid calf; no radiation to the back or feet. She denies numbness/tingling in the leg. No at home supplemental oxygen use. She reports that she has been eating and drinking well since being up. She also reports that she has been going to the bathroom without difficulty. She has no new concerns at time of consult. She denies smoking, tobacco use; endorses mild alcohol use with last drink being 2 glasses of wine the evening of 06/30. Patient reports that she has been physically fit and going to the gym 5 days/week in preparation for her knee surgery. She asks that we watch her potassium levels as they tend to drop on patient. Patient reports she normally takes all of her medications at night. Per review of patient vitals, she has been mildly bradycardic around 56 bpm; vitals otherwise stable at time of consult. ROS: Patient endorses left knee pain. Patient denies fever, chills, night sweats, dizziness, lightheadedness, ACUÑA, c hest pain, pleuritic CP, SOB, abdominal pain, N/V/D, dysuria, burning with urination, or numbness and tingling in his legs. Allergies Allergy/AdvReac Type Severity Reaction Status Date / Time Penicillins Allergy Mild Rash Verified 07/01/23 06:54 aspirin AdvReac Unknown Advised to Verified 07/01/23 06:54 avoid (hx hemorrhagic stroke) NSAIDS (Non-Steroidal AdvReac Unknown Advised to Verified 07/01/23 06:54 Anti-Inflamma avoid (hx hemorrhagic stroke) Home Medications Medication Instructions Recorded Confirmed Type atorvastatin 40 mg tablet 40 mg PO QPM 01/05/19 07/01/23 History diphenhydramine HCl 25 mg capsule 25 mg PO HS PRN Sleep 01/05/19 07/01/23 History (Benadryl) doxycycline hyclate 20 mg tablet 20 mg PO QPM PRN rosacea flare up 01/05/19 07/01/23 History fluocinonide 0.05 % topical cream 1 applic topical UD PRN RASH 01/14/19 07/01/23 History metronidazole 0.75 % topical cream 1 applic topical QAM PRN rosacea 01/14/19 07/01/23 History flare up atenolol 50 mg-chlorthalidone 25 1 tab PO QPM 06/21/19 07/01/23 History mg tablet cholecalciferol (vitamin D3) 50 50 mcg PO DAILY 06/21/19 07/01/23 History mcg (2,000 unit) capsule (Vitamin D3) acetaminophen 500 mg tablet 1,000 mg (2 x 500 mg) PO TID PRN 07/22/19 07/01/23 Rx (Tylenol Extra Strength) pain #60 tabs Patient History Medical History (Updated 07/01/23 @ 16:03 by Keanu Moody PA-C) Hx of rosacea Knee osteoarthritis Hx of Lyme disease Approximately 2019, no residual effects Osteoarthritis History of stroke Hemorrhagic (2009)- treated at [facility]; no residual deficits Rosacea High blood pressure Hyperlipidemia Surgical History (Updated 07/01/23 @ 16:01 by Keanu Moody PA-C) Nausea after anesthesia Single episode (1970s after knee surgery) [place] teeth extracted History of total right knee replacement Right TKA (09/18/2019): SAB at L3-4 + regional at [facility] History of colonoscopy History of hysterectomy History of gynecologic surgery Ovarian cystectomy + USO + Appe History of right knee surgery ACL repair Family History Other Family history of prostate cancer in father Social History Smoking Status: Never smoker Second Hand Exposure: No; Do You Dip or Chew Tobacco: No; Tobacco Cessation Education Requested by Patient: No Hx Alcohol Use: Yes Alcohol type: wine Hx Substance Use: No Preferred Language: Telugu Communication Ability: Effective Word Processing Operator Required: No Beliefs That Will Affect Care: None marital status: Current Living Situation: Spouse Other Information That Helps Us Care for You: No Feels Safe at Home: Yes Safety Concerns: Feels Safe At This Time Assistive Devices: None Review of Systems Review of Systems: See HPI above Physical Exam Physical Exam: General: no acute distress; pleasant affect; non-toxic appearing; well- nourished; cooperative HEENT: normocephalic, atraumatic; no scleral icterus; PERRLA w/ EOMs intact; moist mucus membrane; vision and hearing grossly intact Neck: supple; no lymphadenopathy; trachea midline Skin: warm, dry without signs of tenting; no cyanosis; no rashes, bruising, lesions, or erythema noted CV: chest wall NTP; RRR; S1/S2 normal; no murmurs/rubs/gallops; pulses intact and symmetric at radial, DP, and PT Lungs: no acute respiratory distress; symmetrical chest wall expansion; clear breath sounds across all lung zuniga w/o adventitious sounds; no wheezing ABD: Soft, NTP; BS present; no rebound/guarding; no distention MSK: no tics or fasciculations; no edema noted in the LEs b/l (SCDs/teds in place); patient demonstrates ability to wiggle toes bilaterally; neurovascularly intact Neuro: A&Ox3; normal mood and affect; fluent speech; no focal deficits; patient endorses mild sensation deficit at the left toes assessed via light touch Results & Data Results & Data Vital Signs (Past 12 Hours) Vital Signs Temp Pulse Pulse Resp BP Pulse Ox O2 Del Method 07/01/23 14:50 56 L 56 L 18 120/73 98 Room Air 07/01/23 14:20 36.4 C L 55 L 16 117/61 98 Room Air 07/01/23 13:50 54 L 18 119/71 98 Room Air 07/01/23 13:00 36.3 C L 52 L 16 117/63 96 Room Air 07/01/23 12:30 55 L 17 110/62 97 Room Air 07/01/23 12:00 60 17 131/65 99 Room Air 07/01/23 11:50 36.3 C L 55 L 12 129/62 97 Room Air 07/01/23 11:40 64 12 133/66 100 Oxymask 07/01/23 11:32 36.0 C L 66 16 128/78 98 Oxymask 07/01/23 06:50 36.6 C 56 L 18 164/85 H 97 Room Air O2 Flow Rate 07/01/23 14:50 07/01/23 14:20 07/01/23 13:50 07/01/23 13:00 07/01/23 12:30 07/01/23 12:00 07/01/23 11:50 07/01/23 11:40 4 07/01/23 11:32 4 07/01/23 06:50 Diagnostic Findings Knee X-Ray 07/01/23 11:41 XR knee LT 1 or 2V routine CLINICAL HISTORY: Surgical Post Op TECHNIQUE: 2 views of the left knee were obtained. Comparison: Comparison is made to leg length radiographs 07/24/2020 FINDINGS: Patient is status post total knee arthroplasty with expected postsurgical ch anges including soft tissue swelling and subcutaneous emphysema. No periarticular lucency or hardware fracture is seen. IMPRESSION: Expected postoperative appearance status post placement of total knee arthroplasty. ACT 112: Negative or not required by law. Electronically signed by: Will Garcia M.D. 07/01/2023 12:31 PM PG Care Time/CCT Total # of Minutes Spent Total Time Spent with Patient: Total time spent is greater than 50% in coordination of care (as documented) at patient's floor/unit and/or counseling patient: C[place] [address] IN/OBS CONSULT LVL 3,45M Patient Type Established Medical Decision Making Low Complexity Diagnoses S/P left knee surgery Z98.890 Essential hypertension I10 Hypertension type: essential hypertension Mixed hyperlipidemia E78.2 Hyperlipidemia type: mixed hyperlipidemia Hx of rosacea Z87.2 (2) HTN (hypertension) Hypertension type: essential hypertension Qualified Code(s): I10 - Essential (primary) hypertension (3) Hyperlipidemia Hyperlipidemia type: mixed hyperlipidemia Qualified Code(s): E78.2 - Mixed hyperlipidemia
[2023-07-01] MEDS: KETOROLAC TROMETHAMINE 15 MG/ML VIAL IV SCH ×2 (16:06→21:41)
[2023-07-01] MEDS: ceFAZolin 2000MG 2,000 MG/15 ML SYR IV SCH (18:03)
[2023-07-01] MEDS: ASCORBIC ACID 500 MG TAB PO SCH (18:04)
[2023-07-01] MEDS: FERROUS GLUCONATE 324 MG TAB PO SCH (18:04)
[2023-07-01] MEDS: oxyCODONE HCL IR 5 MG TAB (IMMEDIATE RELEASE) PO PRN (18:13)
[2023-07-01] MEDS ORDERED: CHLORTHALIDONE 25 MG TAB PO SCH (21:00)
[2023-07-01] MEDS ORDERED: SENNA 8.6 MG TAB PO SCH (21:00)
[2023-07-01] MEDS ORDERED: ATORVASTATIN 40 MG TAB PO SCH (21:00)
[2023-07-01] MEDS ORDERED: ATENOLOL 50 MG TABLET PO SCH (21:00)
[2023-07-01] MEDS: DOCUSATE SODIUM 100 MG CAP PO SCH (21:41)
[2023-07-02] MEDS: Scopolamine CHECK PATCH PLACEMENT SCH ×2 (00:30→07:37)
[2023-07-02] MEDS: ceFAZolin 2000MG 2,000 MG/15 ML SYR IV SCH (00:30)
[2023-07-02] MEDS: SODIUM CHLORIDE 0.9% 1,000 ML IV SCH (00:30)
[2023-07-02] MEDS: KETOROLAC TROMETHAMINE 15 MG/ML VIAL IV SCH ×2 (03:56→09:08)
[2023-07-02] MEDS: ACETAMINOPHEN 500 MG TAB PO SCH (06:01)
[2023-07-02] MEDS: oxyCODONE HCL IR 5 MG TAB (IMMEDIATE RELEASE) PO PRN (07:35)
[2023-07-02] MEDS: ASCORBIC ACID 500 MG TAB PO SCH (07:37)
[2023-07-02] MEDS: FERROUS GLUCONATE 324 MG TAB PO SCH (07:37)
[2023-07-02] MEDS: DOCUSATE SODIUM 100 MG CAP PO SCH (07:37)
[2023-07-02] MEDS ORDERED: CHOLECALCIFEROL 1,000 UNITS 25 MCG TAB PO SCH (09:00)
[2023-07-02] MEDS ORDERED: MULTIVITAMIN TAB PO SCH (09:00)
[2023-07-02] MEDS ORDERED: ASPIRIN 81 MG ECTAB PO SCH (09:00)
--- NOTE | 2023-07-02 09:16 | Hospitalist Progress Note ---
Date of Service July 02, 2023 Assessment & Plan (1) S/P left knee surgery: Plan: Left total knee arthroplasty with Dr. Alston on 07/01/23 -Perioperative antibiotics, pain control, fluids, and DVT PPx per primary team Hgb today 9.8, preoperatively 12.9. --> likely acute blood loss anemia Na 131, but stable from preop labs. K 3.5 PT/OT consulted (2) HTN (hypertension): Plan: Continue atenolol Recommend holding chlorthalidone x 2 days, and restarting on the evening of 07/03 (3) Hx of rosacea: Plan: Hold rosacea meds Plan Medically stable - agree with plan for discharge Thank you for allowing us to participate in the care of this patient. Admission and Anticipated Discharge Date Admission Date: July 01, 2023 Subjective Sitting up in the chair, feeling well. Passing gas but no BM. Pain is well controlled Plan for home today with home PT Review of Systems Review of Systems: All systems reviewed & are unremarkable except as noted in Subjective Physical Exam Physical Exam: General: sitting up in the chair, NAD, VS as above Resp: normal respiratory effort, lungs clear to auscultation CV: RRR, no murmur, Abd: normal bowel sounds, non tender, no hepatosplenomegaly Extremities: Moves all extremities. Bilateral LE dayanna hose. kenji wrap over left knee, distal sensation in tact Neuro: A&O x3, Skin: intact, no lesions noted Results & Data Results & Data Vital Signs (Past 12 Hours) Vital Signs Temp Pulse Pulse Resp BP Pulse Ox O2 Del Method 07/02/23 07:06 36.6 C 52 L 16 103/65 97 Room Air 07/02/23 06:03 55 L 138/77 07/02/23 03:54 55 L 117/72 95 Room Air 07/02/23 03:00 36.4 C L 46 L 16 96/59 L 93 Room Air 07/01/23 23:33 36.4 C L 55 L 16 101/64 95 Room Air Laboratory Results CBC and chemistry reviewed PG Care Time/CCT Total # of Minutes Spent Total Time Spent with Patient: Total time spent is greater than 50% in coordination of care (as documented) at patient's floor/unit and/or counseling patient: Coding Level of Care Code 38225 SUB INP/OBS CARE 2/35MIN Diagnoses S/P left knee surgery Z98.890 Essential hypertension I10 Hypertension type: essential hypertension [facility] Z87.2 (2) HTN (hypertension) Hypertension type: essential hypertension Qualified Code(s): I10 - Essential (primary) hypertension
--- NOTE | 2023-07-02 09:50 | Orthopedic Progress Note ---
Date of Service July 02, 2023 Assessment & Plan (1) Knee osteoarthritis: Plan: POD #1 s/p L TKA, doing as well as expected. Resume diet. WBAT with walker. OOB to chair. Continue pain control. DVT prophylaxis: TEDs 3 weeks, foot pumps while in hospital, ASA 81 mg BID for 6 weeks. PT/OT. D/C planning for home later today. Appreciate medicine input Patient agreed for bracing of right knee with lateral stabilizing J knee brace, placed, use with activities. Will plan on changing the dressing to a Silverlon postop day 2 or 3. Admission and Anticipated Discharge Date Admission Date: July 01, 2023 Subjective Feeling pretty good. Physical Exam Physical Exam: LLE: Dressing clean, dry, intact. Wiggling toes and ankle. BCR < 2 sec. Sensation to light touch intact distally. Able to preform a straight leg raise. Results & Data Vital Signs (Past 12 Hours) Vital Signs Temp Pulse Pulse Resp BP Pulse Ox O2 Del Method 07/02/23 07:06 36.6 C 52 L 16 103/65 97 Room Air 07/02/23 06:03 55 L 138/77 07/02/23 03:54 55 L 117/72 95 Room Air 07/02/23 03:00 36.4 C L 46 L 16 96/59 L 93 Room Air 07/01/23 23:33 36.4 C L 55 L 16 101/64 95 Room Air
[2023-07-02 09:59] LABS: Hematocrit (blood only) 30.3 % (37.0-47.0); Hemoglobin 9.8 g/dl (12.0-16.0); Mean Corpuscular Hemoglobin 29.6 pg (25.0-34.0); Mean Corpuscular Hgb Conc 32.3 g/dL (32.0-36.0); Mean Corpuscular Volume 91.5 fL (80.0-100.0); Platelet Count 307 K/uL (130-400); RDW Coefficient of Variation 13.3 % (11.5-14.5); Red Blood Count 3.31 M/uL (4.20-5.40); White Blood Count 7.82 K/ul (4.8-10.8)
[2023-07-02 10:16] LABS: BUN Creatinine Ratio 20.3 (10-20); Calcium 8.5 mg/dl (8.6-10.3); Est GFR (African American) 92.5 ml/min; Est GFR (Non-African American) 79.8 ml/min; Potassium 3.5 mmol/L (3.5-5.1)
[2023-07-02] MEDS ORDERED: CeleBREX 200 MG CAP PO SCH (17:00)
[2023-07-03] MEDS ORDERED: CHLORTHALIDONE 25 MG TAB PO SCH (21:00)
== END 2023-07-02 10:50 | disposition home health service (06) ==
LOC: 3E 06:32 → ASU 06:32